=== PATIENT | male | born 1950 | race African-American/Black ===

== ENCOUNTER 2017-05-21 19:28 | Inpatient (IN) | payer MEDICARE, MEDICAID ==
[~2017-05-21] VITALS: Ht 175.3 cm; Wt 102.8 kg
[~2017-05-21 19:28] MED LIST: ASPI-1160
[2017-05-21 20:07] LABS: BASOPHILS % 0.5 % (0.0-2.0); EOSINOPHILS % 0.9 % (0.0-5.0); HEMATOCRIT. 41.3 % (42.0-52.0); HEMOGLOBIN. 13.4 g/dL (14.0-18.0); LYMPHOCYTES % 18.2 % (20.0-50.0); MEAN CORPUSCULAR HEMOGLOBIN 28.9 pg (28.0-32.0); MEAN CORPUSCULAR VOLUME 89.4 fL (80.0-94.0); MEAN PLATELET VOLUME 8.1 fl (7.4-10.4); MONOCYTES % 9.3 % (2.0-8.0); NEUTROPHILS % 71.1 % (40.0-76.0); PLATELET 222 x1000/uL (130-400); RED BLOOD CELL COUNT 4.62 mill/uL (4.7-6.1); RED CELL DISTRIBUTION WIDTH 15.6 % (11.6-14.6)
[2017-05-21 20:10] LABS: INR 1.1; PROTHROMBIN TIME 11.1 sec (9.4-11.6)
[2017-05-21 20:15] LABS: CHLORIDE 99 mEq/L (98-107)
[2017-05-21 20:21] LABS: TROPONIN I 0.03 ng/mL (0.00-0.04)
[2017-05-21 21:57] LABS: CLARITY URINE CLEAR (CLEAR); COLOR URINE YELLOW (YELLOW); KETONES URINE NEGATIVE (NEGATIVE); LEUKOCYTE ESTERASE URINE 1+ (NEGATIVE); NITRITE URINE NEGATIVE (NEGATIVE); OCCULT BLOOD URINE NEGATIVE (NEGATIVE); PROTEIN URINE TRACE (NEGATIVE); SPECIFIC GRAVITY URINE 1.017 (1.005-1.030); UROBILINOGEN URINE 0.2 E.U./dL (0.2-1.0)
[2017-05-21] MEDS ORDERED: ASPIRIN 81MG TABLET PO ONE (23:30)
[2017-05-21] MEDS ORDERED: PROMETHAZINE HCL 25MG TABLET PO PRN (23:30)
[2017-05-21] MEDS ORDERED: GUAIFENESIN 200MG/10ML SUGAR FREE UDC PO PRN (23:30)
[2017-05-21] MEDS ORDERED: ACETAMINOPHEN 650MG/20.3ML UDC GT PRN (23:30)
[2017-05-21] MEDS ORDERED: DIPHENHYDRAMINE 50MG/ML VIAL IV PRN (23:30)
[2017-05-21] MEDS ORDERED: IPRATROPIUM/ALBUTEROL 0.5-3(2.5)MG/3ML NEB INH PRN (23:30)
[2017-05-21] MEDS ORDERED: ONDANSETRON HCL 4MG/2ML VIAL IV PRN (23:30)
[2017-05-21] MEDS ORDERED: MAGNESIUM/ALUMINUM HYDROXIDE/SIMETHICONE 30ML UDC PO PRN (23:30)
[2017-05-21] MEDS ORDERED: NA PHOS,M-B/NA PHOS,DI-BA ENEMA 118ML PR PRN (23:30)
[2017-05-21] MEDS ORDERED: DOCUSATE SODIUM 100MG CAPSULE PO PRN (23:30)
[2017-05-21] MEDS ORDERED: ALBUTEROL (0.5%) 2.5MG/0.5ML NEB HHN ONE (23:30)
[2017-05-21] MEDS ORDERED: ACETAMINOPHEN 650MG SUPP PR PRN (23:30)
[2017-05-21] MEDS ORDERED: FUROSEMIDE 20MG TABLET PO ONE (23:30)
[2017-05-22] MEDS ORDERED: KETOROLAC 30MG/ML VIAL IV ONE
[2017-05-22] MEDS ORDERED: CEFTRIAXONE 1 G PREMIX 50 ML IV ONE
[2017-05-22 05:45] VITALS: BP 159/89
[2017-05-22] MEDS ORDERED: ROCEPHINE XX SCH (06:00)
[2017-05-22] MEDS: SODIUM CHLORIDE 0.9% INJ 3ML FLUSH IVF SCH ×3 (06:06→21:40)
[2017-05-22 06:35] VITALS: BP 159/89
[2017-05-22 07:53] LABS: CLARITY URINE CLEAR (CLEAR); COLOR URINE YELLOW (YELLOW); KETONES URINE NEGATIVE (NEGATIVE); LEUKOCYTE ESTERASE URINE TRACE (NEGATIVE); NITRITE URINE NEGATIVE (NEGATIVE); OCCULT BLOOD URINE NEGATIVE (NEGATIVE); PROTEIN URINE NEGATIVE (NEGATIVE); SPECIFIC GRAVITY URINE 1.021 (1.005-1.030); UROBILINOGEN URINE 0.2 E.U./dL (0.2-1.0)
[2017-05-22 08:00] VITALS: BP 123/64
[2017-05-22 08:23] LABS: *AMPHETAMINES SCREEN URINE NEGATIVE (NEGATIVE); *BARBITURATES SCREEN URINE NEGATIVE (NEGATIVE); *BENZODIAZEPINES SCREEN URINE NEGATIVE (NEGATIVE); *COCAINE SCREEN URINE NEGATIVE (NEGATIVE); CANNABINOID URINE SCREEN NEGATIVE (NEGATIVE); METHADONE URINE SCREEN NEGATIVE (NEGATIVE); OPIATES URINE SCREEN NEGATIVE (NEGATIVE); PHENCYCLIDINE URINE SCREEN NEGATIVE (NEGATIVE)
[2017-05-22] MEDS: IPRATROPIUM/ALBUTEROL 0.5-3(2.5)MG/3ML NEB INH SCH ×3 (08:47→21:09)
[2017-05-22 09:59] LABS: BASOPHILS % 0.4 % (0.0-2.0); EOSINOPHILS % 0.7 % (0.0-5.0); HEMATOCRIT. 37.5 % (42.0-52.0); HEMOGLOBIN. 12.2 g/dL (14.0-18.0); LYMPHOCYTES % 15.4 % (20.0-50.0); MEAN CORPUSCULAR HEMOGLOBIN 28.9 pg (28.0-32.0); MEAN CORPUSCULAR VOLUME 88.8 fL (80.0-94.0); MEAN PLATELET VOLUME 8.2 fl (7.4-10.4); NEUTROPHILS % 76.5 % (40.0-76.0); PLATELET 190 x1000/uL (130-400); RED BLOOD CELL COUNT 4.23 mill/uL (4.7-6.1); RED CELL DISTRIBUTION WIDTH 15.8 % (11.6-14.6)
[2017-05-22 10:19] LABS: CHLORIDE 103 mEq/L (98-107)
[2017-05-22 10:23] LABS: HDL CHOLESTEROL 82 mg/dL (40-59); LDL CHOLESTEROL 45 mg/dL (5-100)
[2017-05-22 10:30] LABS: TROPONIN I 0.13 ng/mL (0.00-0.04)
[2017-05-22 12:00] VITALS: BP 114/57
[2017-05-22] MEDS: FAMOTIDINE 20MG/2ML VIAL IV SCH (13:20)
[2017-05-22] MEDS: ENOXAPARIN 40MG/0.4ML SYR SUBCUT SCH (13:20)
[2017-05-22 16:00] VITALS: BP 109/56
[2017-05-22] MEDS ORDERED: POTASSIUM CHLORIDE 20MEQ TABLET SR PO NR (17:00)
[2017-05-22 17:03] LABS: TROPONIN I 0.09 ng/mL (0.00-0.04)
[2017-05-22 20:00] VITALS: BP 135/70
[2017-05-22 22:50] LABS: CLARITY URINE CLOUDY (CLEAR); COLOR URINE YELLOW (YELLOW); KETONES URINE NEGATIVE (NEGATIVE); LEUKOCYTE ESTERASE URINE NEGATIVE (NEGATIVE); NITRITE URINE NEGATIVE (NEGATIVE); OCCULT BLOOD URINE NEGATIVE (NEGATIVE); PH URINE 5.5 (4.5-8.0); PROTEIN URINE 1+ (NEGATIVE); SPECIFIC GRAVITY URINE 1.024 (1.005-1.030); UROBILINOGEN URINE 0.2 E.U./dL (0.2-1.0)
[2017-05-23] VITALS: BP 130/64
[2017-05-23] MEDS: ACETAMINOPHEN 325MG TABLET PO PRN ×2 (02:00→20:53)
[2017-05-23] MEDS: IPRATROPIUM/ALBUTEROL 0.5-3(2.5)MG/3ML NEB INH SCH ×4 (02:38→20:23)
[2017-05-23 04:00] VITALS: BP 114/54
[2017-05-23] MEDS: SODIUM CHLORIDE 0.9% INJ 3ML FLUSH IVF SCH ×3 (05:34→22:00)
[2017-05-23 08:00] VITALS: BP 133/71
[2017-05-23] MEDS: HYDROCODONE/ACETAMINOPHEN 5/325MG TABLET PO PRN (10:25)
[2017-05-23] MEDS: FAMOTIDINE 20MG/2ML VIAL IV SCH (10:28)
[2017-05-23] MEDS: ENOXAPARIN 40MG/0.4ML SYR SUBCUT SCH (10:43)
[2017-05-23] MEDS: PANTOPRAZOLE SODIUM 40 MG/VIAL IV SCH (11:59)
[2017-05-23 12:00] VITALS: BP 142/84
[2017-05-23 16:00] VITALS: BP 105/54
[2017-05-23 20:00] VITALS: BP 139/84
[2017-05-23] MEDS: FAMOTIDINE 20MG TABLET PO SCH (20:53)
[2017-05-23] MEDS ORDERED: CEFTRIAXONE 1 G PREMIX 50 ML IV SCH ×2 (21:00)
[2017-05-24] VITALS: BP 131/74
[2017-05-24] MEDS: IPRATROPIUM/ALBUTEROL 0.5-3(2.5)MG/3ML NEB INH SCH ×3 (01:00→13:42)
[2017-05-24] MEDS: HYDROCODONE/ACETAMINOPHEN 5/325MG TABLET PO PRN (03:52)
[2017-05-24 04:00] VITALS: BP 138/79
[2017-05-24] MEDS: SODIUM CHLORIDE 0.9% INJ 3ML FLUSH IVF SCH ×2 (05:43→13:52)
[2017-05-24 08:00] VITALS: BP 146/84
[2017-05-24] MEDS: FAMOTIDINE 20MG TABLET PO SCH (09:09)
[2017-05-24] MEDS: CALCIUM CARBONATE 500MG TABLET CHEW PO SCH ×2 (09:09→13:51)
[2017-05-24] MEDS: PANTOPRAZOLE SODIUM 40 MG/VIAL IV SCH (09:10)
[2017-05-24] MEDS: ENOXAPARIN 40MG/0.4ML SYR SUBCUT SCH (09:10)
[2017-05-24 12:00] VITALS: BP 164/96
[2017-05-24] MEDS: ACETAMINOPHEN 325MG TABLET PO PRN (13:51)
[2017-05-24 15:51] VITALS: BP 140/74
[2017-05-24 16:00] VITALS: BP 140/74
== END 2017-05-24 16:32 | disposition home or self-care (01) | DRG 133 ==
LOC: ER 19:28 → 5WST 23:24 → EDBEDREQ 23:37 → ENRESERV 05-22 04:42
PROVIDERS: ADMIT Family Medicine; ATTEND Family Medicine
DX: J96.20 Acute and chronic respiratory failure, unspecified whether with hypoxia or hypercapnia (principal); I50.43 Acute on chronic combined systolic (congestive) and diastolic (congestive) heart failure; N17.9 Acute kidney failure, unspecified; K80.20 Calculus of gallbladder without cholecystitis without obstruction; N18.9 Chronic kidney disease, unspecified; N39.0 Urinary tract infection, site not specified; K59.00 Constipation, unspecified; J44.9 Chronic obstructive pulmonary disease, unspecified; I44.0 Atrioventricular block, first degree; E44.1 Mild protein-calorie malnutrition; I13.0 Hypertensive heart and chronic kidney disease with heart failure and stage 1 through stage 4 chronic kidney disease, or unspecified chronic kidney disease; I25.10 Atherosclerotic heart disease of native coronary artery without angina pectoris; K57.30 Diverticulosis of large intestine without perforation or abscess without bleeding; J98.11 Atelectasis; K52.9 Noninfective gastroenteritis and colitis, unspecified; J44.1 Chronic obstructive pulmonary disease with (acute) exacerbation; Z83.3 Family history of diabetes mellitus; I69.354 Hemiplegia and hemiparesis following cerebral infarction affecting left non-dominant side; I25.2 Old myocardial infarction; Z90.5 Acquired absence of kidney; Z99.81 Dependence on supplemental oxygen; Z68.33 Body mass index [BMI] 33.0-33.9, adult
CPT/HCPCS: 36415; 71045; 74176; 76700; 76770; 80053; 80061; 80305; 81003; 82550; 83690; 83880; 84484; 85025; 85610; 87086; 93005; 94640; 96365; 96375; 99291; C9113; J0696; J1650; J1885; J3490; J7050; J7611; J7620

== ENCOUNTER 2021-10-05 11:38 | Inpatient (IN) | payer MEDICARE, MEDICAID ==
[~2021-10-05] VITALS: Ht 167.6 cm; Wt 82.6 kg
[2021-10-05] MEDS ORDERED: SODIUM CHLORIDE 0.9% 1,000 ML IV ONE (12:00)
[2021-10-05 12:52] LABS: CHLORIDE 95 mEq/L (98-107)
[2021-10-05 14:25] LABS: BASOPHILS % 0.8 % (0.0-2.0); EOSINOPHILS % 2.4 % (0.0-5.0); HEMATOCRIT. 40.8 % (42.0-52.0); HEMOGLOBIN. 12.9 g/dL (14.0-18.0); LYMPHOCYTES % 9.2 % (20.0-50.0); MEAN CORPUSCULAR HEMOGLOBIN 28.9 pg (28.0-32.0); MEAN CORPUSCULAR VOLUME 91.4 fL (80.0-94.0); MEAN PLATELET VOLUME 9.8 fl (7.4-10.4); MONOCYTES % 9.4 % (2.0-8.0); NEUTROPHILS % 78.2 % (40.0-76.0); PLATELET 135 x1000/uL (130-400); RED BLOOD CELL COUNT 4.46 mill/uL (4.7-6.1); RED CELL DISTRIBUTION WIDTH 16.9 % (11.6-14.6)
[2021-10-05] MEDS ORDERED: ASPIRIN 325MG EC TABLET PO NR (15:30)
[2021-10-05] MEDS ORDERED: GUAIFENESIN 200MG/10ML SUGAR FREE UDC PO PRN (18:00)
[2021-10-05] MEDS ORDERED: ONDANSETRON HCL 4MG/2ML INJ IV PRN (18:00)
[2021-10-05] MEDS ORDERED: CLONIDINE 0.1MG TABLET PO PRN (18:00)
[2021-10-05] MEDS ORDERED: IPRATROPIUM/ALBUTEROL 0.5-3(2.5)MG/3ML NEB NEB PRN (18:00)
[2021-10-05 21:00] VITALS: BP 125/68
[2021-10-05 21:30] VITALS: BP 125/68
[2021-10-05] MEDS: ENOXAPARIN 30MG/0.3ML SYR SUBCUT SCH (21:42)
[2021-10-05 23:43] LABS: CLARITY URINE CLEAR (CLEAR); COLOR URINE YELLOW (YELLOW); KETONES URINE TRACE (NEGATIVE); LEUKOCYTE ESTERASE URINE NEGATIVE (NEGATIVE); NITRITE URINE NEGATIVE (NEGATIVE); OCCULT BLOOD URINE 1+ (NEGATIVE); PH URINE 6.5 (4.5-8.0); PROTEIN URINE 1+ (NEGATIVE); SPECIFIC GRAVITY URINE 1.013 (1.005-1.030)
[2021-10-06] VITALS: BP 104/61
[2021-10-06 00:09] LABS: SODIUM URINE RANDOM 74 mEq/L
[2021-10-06 00:17] LABS: *AMPHETAMINES SCREEN URINE NEGATIVE (NEGATIVE); *BARBITURATES SCREEN URINE NEGATIVE (NEGATIVE); *BENZODIAZEPINES SCREEN URINE NEGATIVE (NEGATIVE); *COCAINE SCREEN URINE NEGATIVE (NEGATIVE); CANNABINOID URINE SCREEN NEGATIVE (NEGATIVE); METHADONE URINE SCREEN NEGATIVE (NEGATIVE); OPIATES URINE SCREEN NEGATIVE (NEGATIVE); PHENCYCLIDINE URINE SCREEN NEGATIVE (NEGATIVE); UREA NITROGEN URINE RANDOM 441 mg/dL
[2021-10-06] MEDS: ACETAMINOPHEN 325MG TABLET PO PRN ×2 (03:37→12:36)
[2021-10-06 04:00] VITALS: BP 109/60
[2021-10-06] MEDS: HYDROCODONE/ACETAMINOPHEN 5/325MG TABLET PO PRN (06:45)
[2021-10-06 08:00] VITALS: BP 111/64
[2021-10-06 08:22] LABS: BASOPHILS % 0.7 % (0.0-2.0); EOSINOPHILS % 3.4 % (0.0-5.0); HEMATOCRIT. 37.6 % (42.0-52.0); HEMOGLOBIN. 12.2 g/dL (14.0-18.0); MEAN CORPUSCULAR HEMOGLOBIN 28.9 pg (28.0-32.0); MEAN CORPUSCULAR VOLUME 89.2 fL (80.0-94.0); MEAN PLATELET VOLUME 9.1 fl (7.4-10.4); MONOCYTES % 7.1 % (2.0-8.0); NEUTROPHILS % 79.8 % (40.0-76.0); PLATELET 142 x1000/uL (130-400); RED BLOOD CELL COUNT 4.22 mill/uL (4.7-6.1); RED CELL DISTRIBUTION WIDTH 15.9 % (11.6-14.6)
[2021-10-06] MEDS: ASPIRIN 81MG EC TABLET PO SCH (08:30)
[2021-10-06 08:51] LABS: PHOSPHORUS 5.1 mg/dL (2.5-4.9)
[2021-10-06] MEDS ORDERED: IPRATROPIUM/ALBUTEROL 0.5-3(2.5)MG/3ML NEB HHN NR (09:20)
[2021-10-06] MEDS ORDERED: NITROGLYCERIN 0.4MG TABLET SL SL PRN (09:30)
[2021-10-06] MEDS ORDERED: IPRATROPIUM/ALBUTEROL 0.5-3(2.5)MG/3ML NEB HHN PRN (10:15)
[2021-10-06] MEDS ORDERED: METHYLPREDNISOLONE SOD SUCC 125 MG/2 ML VIAL IV SCH (10:30)
[2021-10-06 10:33] LABS: VITAMIN B12 SERUM 1101 pg/mL (211-911)
[2021-10-06 11:05] LABS: FOLIC ACID (FOLATE) SERUM > 20.00 ng/mL (>5.38)
[2021-10-06 11:27] LABS: FERRITIN 873 ng/mL (22-322)
[2021-10-06 11:32] LABS: BG BASE EXCESS 8.5 mmol/L (-2.0-2.0); BG CARBOXYHEMOGLOBIN 1.4 % (0.5-1.5); BG FRACTION INSPIRED OXYGEN 32; BG METHEMOGLOBIN 0.3 % (0.0-1.5); BG OXYHEMOGLOBIN 96.3 % (94.0-97.0); BG PCO2 72.2 mmHg (35.0-45.0); BG PH 7.328 (7.350-7.450); BG SAMPLE SITE RIGHT RADIAL; BG TOTAL HEMOGLOBIN 12.7 g/dL (12.0-18.0); BG VENT MODE NASAL CANNULA
[2021-10-06 11:35] VITALS: BP 101/51
[2021-10-06] MEDS: CLOPIDOGREL 75MG TABLET PO SCH (12:05)
[2021-10-06] MEDS ORDERED: POTASSIUM CHLORIDE INJ 40 MEQ in DEXT 5% WATER 250 ML IV NR (12:30)
[2021-10-06] MEDS: IPRATROPIUM/ALBUTEROL 0.5-3(2.5)MG/3ML NEB HHN SCH ×4 (13:40→20:31)
[2021-10-06] MEDS ORDERED: REGADENOSON 0.4 MG/5 ML IV NR (14:15)
[2021-10-06 15:41] VITALS: BP 100/49
[2021-10-06 15:53] LABS: BG BASE EXCESS 7.9 mmol/L (-2.0-2.0); BG CARBOXYHEMOGLOBIN 0.6 % (0.5-1.5); BG DEOXYHEMOGLOBIN 2.1 % (0.0-5.0); BG FRACTION INSPIRED OXYGEN 28; BG HCO3 ACT 36.9 mmol/L (22.0-26.0); BG METHEMOGLOBIN 0.1 % (0.0-1.5); BG OXYGEN SATURATION 97.9 % (92.0-98.5); BG OXYHEMOGLOBIN 97.2 % (94.0-97.0); BG PCO2 74.6 mmHg (35.0-45.0); BG PH 7.312 (7.350-7.450); BG PO2 117.5 mmHg (75.0-100.0); BG SAMPLE SITE RIGHT RADIAL; BG TOTAL HEMOGLOBIN 13.5 g/dL (12.0-18.0); BG VENT MODE NASAL CANNULA
[2021-10-06 16:38] LABS: HEPATITIS B SURFACE AB 68.1 mIU/mL
[2021-10-06 16:49] LABS: HEPATITIS B SURFACE ANTIGEN NEGATIVE
[2021-10-06 20:00] VITALS: BP 100/56
[2021-10-06] MEDS: ENOXAPARIN 30MG/0.3ML SYR SUBCUT SCH (20:46)
[2021-10-06 21:05] LABS: BG BASE EXCESS 6.6 mmol/L (-2.0-2.0); BG CARBOXYHEMOGLOBIN 0.7 % (0.5-1.5); BG DEOXYHEMOGLOBIN 4.8 % (0.0-5.0); BG FRACTION INSPIRED OXYGEN 24; BG METHEMOGLOBIN 0.2 % (0.0-1.5); BG OXYGEN SATURATION 95.2 % (92.0-98.5); BG OXYHEMOGLOBIN 94.3 % (94.0-97.0); BG PCO2 69.4 mmHg (35.0-45.0); BG PH 7.321 (7.350-7.450); BG SAMPLE SITE RIGHT RADIAL; BG TOTAL HEMOGLOBIN 13.3 g/dL (12.0-18.0); BG VENT MODE NASAL CANNULA
[2021-10-07] VITALS: BP 99/55
[2021-10-07 04:04] VITALS: BP 101/53
[2021-10-07] MEDS: HYDROCODONE/ACETAMINOPHEN 5/325MG TABLET PO PRN ×2 (05:57→21:12)
[2021-10-07] MEDS: MAGNESIUM/ALUMINUM HYDROXIDE/SIMETHICONE 30ML UDC PO PRN (06:57)
[2021-10-07 07:47] LABS: HEMATOCRIT. 38.7 % (42.0-52.0); HEMOGLOBIN. 12.4 g/dL (14.0-18.0); MEAN CORPUSCULAR HEMOGLOBIN 28.8 pg (28.0-32.0); MEAN CORPUSCULAR VOLUME 89.7 fL (80.0-94.0); MEAN PLATELET VOLUME 9.2 fl (7.4-10.4); PLATELET 163 x1000/uL (130-400); RED BLOOD CELL COUNT 4.31 mill/uL (4.7-6.1)
[2021-10-07 08:00] VITALS: BP 102/55
[2021-10-07 08:15] LABS: PHOSPHORUS 3.9 mg/dL (2.5-4.9)
[2021-10-07] MEDS: CLOPIDOGREL 75MG TABLET PO SCH (08:43)
[2021-10-07] MEDS: ASPIRIN 81MG EC TABLET PO SCH (08:44)
[2021-10-07 09:07] LABS: *CREATININE RANDOM URINE 70.9 mg/dL (Not Estab.)
[2021-10-07 12:00] VITALS: BP 115/59
[2021-10-07] MEDS ORDERED: DEXAMETHASONE 4MG TABLET PO SCH (15:00)
[2021-10-07 16:00] VITALS: BP 109/51
[2021-10-07] MEDS ORDERED: ERGOCALCIFEROL 50000UNITS CAPSULE PO SCH (17:00)
[2021-10-07] MEDS: DEXAMETHASONE 10 MG/ML VIAL IV SCH (17:01)
[2021-10-07] MEDS: AZITHROMYCIN 500 MG TABLET PO SCH (17:01)
[2021-10-07] MEDS: ALBUTEROL 6.7GM HFA INHALER ORI SCH (18:12)
[2021-10-07 20:00] VITALS: BP 106/50
[2021-10-07] MEDS: ENOXAPARIN 30MG/0.3ML SYR SUBCUT SCH (21:12)
[2021-10-07] MEDS: ASCORBIC ACID 500 MG TABLET PO SCH (21:13)
[2021-10-08] VITALS (7 sets, daily range): BP systolic 96–128; BP diastolic 53–77
[2021-10-08] MEDS: ALBUTEROL 6.7GM HFA INHALER ORI SCH ×4 (01:01→16:59)
[2021-10-08] MEDS: HYDROCODONE/ACETAMINOPHEN 5/325MG TABLET PO PRN ×2 (04:54→16:59)
[2021-10-08] MEDS: ASPIRIN 81MG EC TABLET PO SCH (09:18)
[2021-10-08] MEDS: ASCORBIC ACID 500 MG TABLET PO SCH ×2 (09:18→21:36)
[2021-10-08] MEDS: AZITHROMYCIN 500 MG TABLET PO SCH (09:18)
[2021-10-08] MEDS: CLOPIDOGREL 75MG TABLET PO SCH (09:18)
[2021-10-08 16:21] LABS: HEMATOCRIT. 39.1 % (42.0-52.0); HEMOGLOBIN. 12.2 g/dL (14.0-18.0); MEAN PLATELET VOLUME 8.7 fl (7.4-10.4); PLATELET 180 x1000/uL (130-400); RED CELL DISTRIBUTION WIDTH 16.4 % (11.6-14.6)
[2021-10-08 16:48] LABS: CHLORIDE 102 mEq/L (98-107)
[2021-10-08 16:50] LABS: PLATELET ESTIMATE NORMAL
[2021-10-08] MEDS ORDERED: AZIT500T8 MT (16:59)
[2021-10-08] MEDS ORDERED: [UNRECOGNIZED DRUG - CODE] PO ×3 (16:59→17:06)
[2021-10-08] MEDS ORDERED: MED4 MT ×3 (16:59→17:06)
[2021-10-08] MEDS: DEXAMETHASONE 10 MG/ML VIAL IV SCH (16:59)
[2021-10-08] MEDS ORDERED: AZIT500T8 PO ×2 (17:06)
[2021-10-08 17:07] LABS: PHOSPHORUS 2.5 mg/dL (2.5-4.9)
[2021-10-08] MEDS ORDERED: NALOXONE HCL 0.4MG/ML VIAL IV PRN (18:45)
[2021-10-08] MEDS: ENOXAPARIN 30MG/0.3ML SYR SUBCUT SCH (21:36)
[2021-10-08 22:38] LABS: PLATELET ESTIMATE NORMAL
[2021-10-08 23:10] LABS: BG BASE EXCESS 9.1 mmol/L (-2.0-2.0); BG DEOXYHEMOGLOBIN 3.8 % (0.0-5.0); BG FRACTION INSPIRED OXYGEN 36; BG METHEMOGLOBIN 0.3 % (0.0-1.5); BG OXYGEN SATURATION 96.1 % (92.0-98.5); BG OXYHEMOGLOBIN 94.9 % (94.0-97.0); BG PCO2 126.1 mmHg (35.0-45.0); BG PH 7.151 (7.350-7.450); BG PO2 102.9 mmHg (75.0-100.0); BG SAMPLE SITE RIGHT RADIAL; BG VENT MODE NASAL CANNULA
[2021-10-09] VITALS (50 sets, daily range): BP systolic 91–140; BP diastolic 51–81
[2021-10-09 01:58] LABS: BG BASE EXCESS 6.7 mmol/L (-2.0-2.0); BG CARBOXYHEMOGLOBIN 1.1 % (0.5-1.5); BG DEOXYHEMOGLOBIN 2.3 % (0.0-5.0); BG FRACTION INSPIRED OXYGEN 50; BG HCO3 ACT 37.3 mmol/L (22.0-26.0); BG METHEMOGLOBIN 0.4 % (0.0-1.5); BG OXYGEN SATURATION 97.7 % (92.0-98.5); BG OXYHEMOGLOBIN 96.2 % (94.0-97.0); BG PCO2 87.2 mmHg (35.0-45.0); BG PH 7.249 (7.350-7.450); BG PO2 111.8 mmHg (75.0-100.0); BG SAMPLE SITE RIGHT RADIAL; BG TOTAL HEMOGLOBIN 13.9 g/dL (12.0-18.0); BG VENT MODE MASK - BIPAP
[2021-10-09] MEDS: ALBUTEROL 6.7GM HFA INHALER ORI SCH ×3 (05:33→18:43)
[2021-10-09 06:44] LABS: PHOSPHORUS 4.3 mg/dL (2.5-4.9)
[2021-10-09 08:43] LABS: BG BASE EXCESS 11.3 mmol/L (-2.0-2.0); BG CARBOXYHEMOGLOBIN 0.5 % (0.5-1.5); BG DEOXYHEMOGLOBIN 1.1 % (0.0-5.0); BG FRACTION INSPIRED OXYGEN 50; BG HCO3 ACT 40.7 mmol/L (22.0-26.0); BG METHEMOGLOBIN 0.1 % (0.0-1.5); BG OXYGEN SATURATION 98.9 % (92.0-98.5); BG OXYHEMOGLOBIN 98.3 % (94.0-97.0); BG PCO2 78.7 mmHg (35.0-45.0); BG PH 7.331 (7.350-7.450); BG PO2 158.3 mmHg (75.0-100.0); BG SAMPLE SITE RIGHT RADIAL; BG TOTAL HEMOGLOBIN 13.5 g/dL (12.0-18.0); BG TOTAL RESPIRATORY RATE 24 b/min; BG VENT MODE MASK - BIPAP
[2021-10-09] MEDS: ASCORBIC ACID 500 MG TABLET PO SCH ×2 (09:03→21:19)
[2021-10-09] MEDS: CLOPIDOGREL 75MG TABLET PO SCH (09:03)
[2021-10-09] MEDS: ASPIRIN 81MG EC TABLET PO SCH (09:04)
[2021-10-09] MEDS: DEXAMETHASONE 10 MG/ML VIAL IV SCH ×2 (09:49→17:44)
[2021-10-09 09:59] LABS: HEMATOCRIT. 39.4 % (42.0-52.0); HEMOGLOBIN. 12.4 g/dL (14.0-18.0); MEAN CORPUSCULAR HEMOGLOBIN 28.9 pg (28.0-32.0); MEAN CORPUSCULAR VOLUME 91.8 fL (80.0-94.0); MEAN PLATELET VOLUME 9.1 fl (7.4-10.4); PLATELET 191 x1000/uL (130-400); RED BLOOD CELL COUNT 4.29 mill/uL (4.7-6.1); RED CELL DISTRIBUTION WIDTH 16.3 % (11.6-14.6)
[2021-10-09 10:46] LABS: PLATELET ESTIMATE NORMAL
[2021-10-09 15:23] LABS: BG BASE EXCESS 10.6 mmol/L (-2.0-2.0); BG CARBOXYHEMOGLOBIN 0.6 % (0.5-1.5); BG DEOXYHEMOGLOBIN 2.9 % (0.0-5.0); BG FRACTION INSPIRED OXYGEN 40; BG HCO3 ACT 37.5 mmol/L (22.0-26.0); BG METHEMOGLOBIN 0.3 % (0.0-1.5); BG OXYGEN SATURATION 97.1 % (92.0-98.5); BG OXYHEMOGLOBIN 96.2 % (94.0-97.0); BG PCO2 60.4 mmHg (35.0-45.0); BG PH 7.411 (7.350-7.450); BG PO2 92.3 mmHg (75.0-100.0); BG SAMPLE SITE RIGHT RADIAL; BG TOTAL RESPIRATORY RATE 24 b/min; BG VENT MODE MASK - BIPAP
[2021-10-09] MEDS: ENOXAPARIN 30MG/0.3ML SYR SUBCUT SCH (21:19)
[2021-10-10] VITALS (40 sets, daily range): BP systolic 100–154; BP diastolic 65–91
[2021-10-10] MEDS: ALBUTEROL 6.7GM HFA INHALER ORI SCH ×4 (00:39→18:09)
[2021-10-10 05:37] LABS: HEMATOCRIT. 38.4 % (42.0-52.0); HEMOGLOBIN. 12.2 g/dL (14.0-18.0); MEAN CORPUSCULAR HEMOGLOBIN 28.7 pg (28.0-32.0); MEAN CORPUSCULAR VOLUME 90.3 fL (80.0-94.0); MEAN PLATELET VOLUME 9.3 fl (7.4-10.4); PLATELET 206 x1000/uL (130-400); RED BLOOD CELL COUNT 4.25 mill/uL (4.7-6.1)
[2021-10-10 06:17] LABS: CHLORIDE 102 mEq/L (98-107); PHOSPHORUS 1.9 mg/dL (2.5-4.9)
[2021-10-10] MEDS: ASCORBIC ACID 500 MG TABLET PO SCH ×2 (08:20→20:40)
[2021-10-10] MEDS: ASPIRIN 81MG EC TABLET PO SCH (08:20)
[2021-10-10] MEDS: DEXAMETHASONE 10 MG/ML VIAL IV SCH ×2 (08:20→16:56)
[2021-10-10] MEDS: CLOPIDOGREL 75MG TABLET PO SCH (08:20)
[2021-10-10] MEDS: DOXYCYCLINE 100 MG in DEXT 5% WATER 100 ML IV SCH ×2 (09:04→20:31)
[2021-10-10 10:31] LABS: BG BASE EXCESS 12.8 mmol/L (-2.0-2.0); BG CARBOXYHEMOGLOBIN 0.3 % (0.5-1.5); BG DEOXYHEMOGLOBIN 2.6 % (0.0-5.0); BG FRACTION INSPIRED OXYGEN 40; BG HCO3 ACT 38.7 mmol/L (22.0-26.0); BG METHEMOGLOBIN 0.3 % (0.0-1.5); BG OXYGEN SATURATION 97.4 % (92.0-98.5); BG OXYHEMOGLOBIN 96.8 % (94.0-97.0); BG PCO2 55.8 mmHg (35.0-45.0); BG PH 7.459 (7.350-7.450); BG SAMPLE SITE RIGHT RADIAL; BG TOTAL HEMOGLOBIN 11.9 g/dL (12.0-18.0); BG TOTAL RESPIRATORY RATE 24 b/min; BG VENT MODE MASK - BIPAP
[2021-10-10] MEDS ORDERED: POTASSIUM PHOS,M-BASIC-D-BASIC 15 MMOL in DEXT 5% WATER 245 ML IV NR (12:30)
[2021-10-10 14:41] LABS: PLATELET ESTIMATE NORMAL
[2021-10-10] MEDS ORDERED: HYDROCODONE/ACETAMINOPHEN 5/325MG TABLET PO PRN (20:15)
[2021-10-10] MEDS: MAGNESIUM/ALUMINUM HYDROXIDE/SIMETHICONE 30ML UDC PO PRN (20:38)
[2021-10-10] MEDS: ENOXAPARIN 30MG/0.3ML SYR SUBCUT SCH (20:41)
[2021-10-10] MEDS ORDERED: HYDROXYZINE 25MG TABLET PO PRN (22:30)
[2021-10-11] VITALS (56 sets, daily range): BP systolic 44–147; BP diastolic 23–120
[2021-10-11] MEDS: ALBUTEROL 6.7GM HFA INHALER ORI SCH ×2 (04:29→06:19)
[2021-10-11 07:24] LABS: HEMATOCRIT. 33.7 % (42.0-52.0); MEAN CORPUSCULAR HEMOGLOBIN 28.9 pg (28.0-32.0); MEAN CORPUSCULAR VOLUME 88.5 fL (80.0-94.0); PLATELET 195 x1000/uL (130-400); RED BLOOD CELL COUNT 3.81 mill/uL (4.7-6.1); RED CELL DISTRIBUTION WIDTH 16.4 % (11.6-14.6)
[2021-10-11 07:58] LABS: PHOSPHORUS 3.9 mg/dL (2.5-4.9)
[2021-10-11 08:17] LABS: BG BASE EXCESS 9.1 mmol/L (-2.0-2.0); BG CARBOXYHEMOGLOBIN 0.7 % (0.5-1.5); BG DEOXYHEMOGLOBIN 3.2 % (0.0-5.0); BG HCO3 ACT 36.2 mmol/L (22.0-26.0); BG METHEMOGLOBIN 0.2 % (0.0-1.5); BG OXYGEN SATURATION 96.8 % (92.0-98.5); BG OXYHEMOGLOBIN 95.9 % (94.0-97.0); BG PCO2 62.5 mmHg (35.0-45.0); BG PH 7.381 (7.350-7.450); BG PO2 91.5 mmHg (75.0-100.0); BG SAMPLE SITE RIGHT RADIAL; BG TOTAL HEMOGLOBIN 11.9 g/dL (12.0-18.0); BG VENT MODE MASK - BIPAP
[2021-10-11] MEDS ORDERED: SODIUM BICARBONATE 8.4% 1 MEQ/ML 50ML SYR IV ONE (08:29)
[2021-10-11] MEDS ORDERED: EPINEPHRINE 0.1MG/ML (1:10,000) 10ML SYR ONE (08:29)
[2021-10-11] MEDS ORDERED: LIDOCAINE HCL/PF 1% 2ML VIAL ONE (09:40)
[2021-10-11] MEDS ORDERED: PROPOFOL 10MG/ML 100ML 100 ML IV PRN (10:30)
[2021-10-11] MEDS: ASCORBIC ACID 500 MG TABLET PO SCH ×2 (10:31→20:25)
[2021-10-11] MEDS: CLOPIDOGREL 75MG TABLET PO SCH (10:31)
[2021-10-11] MEDS: ASPIRIN 81MG EC TABLET PO SCH (10:31)
[2021-10-11 10:41] LABS: BG BASE EXCESS 7.8 mmol/L (-2.0-2.0); BG CARBOXYHEMOGLOBIN 0.3 % (0.5-1.5); BG DEOXYHEMOGLOBIN 0.6 % (0.0-5.0); BG FRACTION INSPIRED OXYGEN 100; BG METHEMOGLOBIN 0.2 % (0.0-1.5); BG OXYGEN SATURATION 99.4 % (92.0-98.5); BG OXYHEMOGLOBIN 98.9 % (94.0-97.0); BG PH 7.446 (7.350-7.450); BG PO2 335.5 mmHg (75.0-100.0); BG SAMPLE SITE RIGHT BRACHIAL; BG TOTAL HEMOGLOBIN 11.1 g/dL (12.0-18.0); BG VENT MODE VENT - CPAP
[2021-10-11] MEDS ORDERED: PHENYLEPHRINE 100 MG in DEXT 5% WATER 240 ML IV PRN (11:00)
[2021-10-11] MEDS: NOREPINEPHRINE 32 MG in DEXT 5% WATER 218 ML IV PRN (11:33)
[2021-10-11] MEDS: DEXAMETHASONE 10 MG/ML VIAL IV SCH ×2 (11:34→16:50)
[2021-10-11] MEDS: DOXYCYCLINE 100 MG in DEXT 5% WATER 100 ML IV SCH ×2 (11:34→20:18)
[2021-10-11] MEDS: IPRATROPIUM/ALBUTEROL 0.5-3(2.5)MG/3ML NEB HHN SCH ×4 (11:44→23:56)
[2021-10-11 14:28] LABS: PLATELET ESTIMATE NORMAL
[2021-10-11] MEDS ORDERED: MAGNESIUM HYDROXIDE 400MG/5ML 30ML UDC PO PRN (16:30)
[2021-10-11] MEDS: POLYETHYLENE GLYCOL 3350 (17GM) 1 DOSE PACK PO SCH (16:50)
[2021-10-11] MEDS ORDERED: SENNOSIDES/DOCUSATE SOD 8.6/50MG TABLET PO SCH (17:00)
[2021-10-11] MEDS: ENOXAPARIN 30MG/0.3ML SYR SUBCUT SCH (20:19)
[2021-10-11] MEDS: SENNOSIDES/DOCUSATE SOD 8.6/50MG TABLET PO SCH (20:24)
[2021-10-11] MEDS: FAMOTIDINE 20MG TABLET PO SCH (20:25)
[2021-10-11] MEDS: ACETAMINOPHEN 325MG TABLET PO PRN (20:39)
[2021-10-12] VITALS (87 sets, daily range): BP systolic 77–131; BP diastolic 35–77
[2021-10-12] MEDS: IPRATROPIUM/ALBUTEROL 0.5-3(2.5)MG/3ML NEB HHN SCH ×5 (03:55→20:16)
[2021-10-12 04:41] LABS: HEMATOCRIT. 33.1 % (42.0-52.0); HEMOGLOBIN. 10.8 g/dL (14.0-18.0); MEAN CORPUSCULAR HEMOGLOBIN 28.7 pg (28.0-32.0); MEAN CORPUSCULAR VOLUME 87.9 fL (80.0-94.0); MEAN PLATELET VOLUME 9.4 fl (7.4-10.4); PLATELET 223 x1000/uL (130-400); RED BLOOD CELL COUNT 3.77 mill/uL (4.7-6.1); RED CELL DISTRIBUTION WIDTH 16.3 % (11.6-14.6)
[2021-10-12 04:54] LABS: PHOSPHORUS 1.1 mg/dL (2.5-4.9)
[2021-10-12 07:54] LABS: PLATELET ESTIMATE NORMAL
[2021-10-12 08:15] LABS: BG BASE EXCESS 14.1 mmol/L (-2.0-2.0); BG CARBOXYHEMOGLOBIN 0.3 % (0.5-1.5); BG DEOXYHEMOGLOBIN 3.1 % (0.0-5.0); BG FRACTION INSPIRED OXYGEN 40; BG HCO3 ACT 37.5 mmol/L (22.0-26.0); BG METHEMOGLOBIN 0.3 % (0.0-1.5); BG OXYGEN SATURATION 96.9 % (92.0-98.5); BG OXYHEMOGLOBIN 96.3 % (94.0-97.0); BG PCO2 42.3 mmHg (35.0-45.0); BG PH 7.566 (7.350-7.450); BG PO2 89.6 mmHg (75.0-100.0); BG SAMPLE SITE RIGHT RADIAL; BG TOTAL HEMOGLOBIN 10.5 g/dL (12.0-18.0); BG VENT MODE VENT - AC
[2021-10-12] MEDS: ACETAMINOPHEN 325MG TABLET PO PRN ×3 (08:15→20:37)
[2021-10-12] MEDS: CLOPIDOGREL 75MG TABLET PO SCH (08:15)
[2021-10-12] MEDS: DEXAMETHASONE 10 MG/ML VIAL IV SCH ×2 (08:15→16:55)
[2021-10-12] MEDS: ASPIRIN 81MG EC TABLET PO SCH (08:16)
[2021-10-12] MEDS: SENNOSIDES/DOCUSATE SOD 8.6/50MG TABLET PO SCH ×2 (08:16→20:37)
[2021-10-12] MEDS: ASCORBIC ACID 500 MG TABLET PO SCH ×2 (08:16→20:37)
[2021-10-12] MEDS: POLYETHYLENE GLYCOL 3350 (17GM) 1 DOSE PACK PO SCH (08:16)
[2021-10-12] MEDS: DOXYCYCLINE 100 MG in DEXT 5% WATER 100 ML IV SCH ×2 (08:39→20:36)
[2021-10-12] MEDS ORDERED: SODIUM PHOS,M-BASIC-D-BASIC 30 MM in DEXT 5% WATER 500 ML IV NR (10:00)
[2021-10-12] MEDS ORDERED: LIDOCAINE HCL 1% 10 MG/ML 10ML VIAL ONE (13:03)
[2021-10-12] MEDS: FAMOTIDINE 20MG TABLET PO SCH (20:37)
[2021-10-12] MEDS: ENOXAPARIN 30MG/0.3ML SYR SUBCUT SCH (20:37)
[2021-10-13] VITALS (93 sets, daily range): BP systolic 85–135; BP diastolic 35–82
[2021-10-13] MEDS: IPRATROPIUM/ALBUTEROL 0.5-3(2.5)MG/3ML NEB HHN SCH ×6 (00:36→20:22)
[2021-10-13] MEDS: NOREPINEPHRINE 32 MG in DEXT 5% WATER 218 ML IV PRN (03:34)
[2021-10-13 05:37] LABS: HEMATOCRIT. 31.3 % (42.0-52.0); MEAN CORPUSCULAR HEMOGLOBIN 28.2 pg (28.0-32.0); MEAN CORPUSCULAR VOLUME 88.5 fL (80.0-94.0); MEAN PLATELET VOLUME 9.5 fl (7.4-10.4); PLATELET 245 x1000/uL (130-400); RED BLOOD CELL COUNT 3.53 mill/uL (4.7-6.1); RED CELL DISTRIBUTION WIDTH 16.8 % (11.6-14.6)
[2021-10-13 06:08] LABS: PHOSPHORUS 3.3 mg/dL (2.5-4.9)
[2021-10-13 08:25] LABS: BG BASE EXCESS 12.2 mmol/L (-2.0-2.0); BG CARBOXYHEMOGLOBIN 0.1 % (0.5-1.5); BG DEOXYHEMOGLOBIN 3.3 % (0.0-5.0); BG HCO3 ACT 35.9 mmol/L (22.0-26.0); BG METHEMOGLOBIN 0.3 % (0.0-1.5); BG OXYGEN SATURATION 96.7 % (92.0-98.5); BG OXYHEMOGLOBIN 96.3 % (94.0-97.0); BG PCO2 42.7 mmHg (35.0-45.0); BG PH 7.543 (7.350-7.450); BG PO2 87.9 mmHg (75.0-100.0); BG SAMPLE SITE RIGHT RADIAL; BG TOTAL HEMOGLOBIN 11.5 g/dL (12.0-18.0); BG VENT MODE VENT - SIMV
[2021-10-13] MEDS: DEXAMETHASONE 10 MG/ML VIAL IV SCH ×2 (08:40→18:04)
[2021-10-13] MEDS: CLOPIDOGREL 75MG TABLET PO SCH (08:40)
[2021-10-13] MEDS: ASCORBIC ACID 500 MG TABLET PO SCH ×2 (08:40→20:37)
[2021-10-13] MEDS: POLYETHYLENE GLYCOL 3350 (17GM) 1 DOSE PACK PO SCH (08:40)
[2021-10-13] MEDS: ASPIRIN 81MG EC TABLET PO SCH (08:40)
[2021-10-13] MEDS: SENNOSIDES/DOCUSATE SOD 8.6/50MG TABLET PO SCH ×2 (08:40→20:37)
[2021-10-13] MEDS: DOXYCYCLINE 100 MG in DEXT 5% WATER 100 ML IV SCH ×2 (08:40→20:37)
[2021-10-13 09:28] LABS: NUCLEATED RED BLOOD CELLS 2 /100 WBC; PLATELET ESTIMATE NORMAL
[2021-10-13] MEDS ORDERED: INSULIN GLARGINE 100 UNITS/ML SUBCUT NR (10:45)
[2021-10-13] MEDS ORDERED: POTASSIUM CHLORIDE 20MEQ/PACKET PO NR (10:45)
[2021-10-13] MEDS ORDERED: NA PHOS,M-B/NA PHOS,DI-BA ENEMA 118ML PR SCH (11:00)
[2021-10-13] MEDS: ACETAZOLAMIDE 500MG ER CAPSULE PO SCH (13:25)
[2021-10-13] MEDS: FAMOTIDINE 20MG TABLET PO SCH (20:37)
[2021-10-13] MEDS: ENOXAPARIN 30MG/0.3ML SYR SUBCUT SCH (20:38)
[2021-10-14] VITALS (77 sets, daily range): BP systolic 79–138; BP diastolic 21–83
[2021-10-14] MEDS: IPRATROPIUM/ALBUTEROL 0.5-3(2.5)MG/3ML NEB HHN SCH ×6 (00:18→20:22)
[2021-10-14 06:00] LABS: HEMATOCRIT 29.5 % (42.0-52.0); HEMOGLOBIN 9.7 g/dL (14.0-18.0); MEAN CORPUSCULAR HEMOGLOBIN 29.2 pg (28.0-32.0); MEAN CORPUSCULAR VOLUME 89.1 fL (80.0-94.0); PLATELET 209 x1000/uL (130-400); RED BLOOD CELL COUNT 3.31 mill/uL (4.7-6.1); RED CELL DISTRIBUTION WIDTH 16.9 % (11.6-14.6)
[2021-10-14 07:53] LABS: BG BASE EXCESS 8.3 mmol/L (-2.0-2.0); BG CARBOXYHEMOGLOBIN 0.3 % (0.5-1.5); BG DEOXYHEMOGLOBIN 2.4 % (0.0-5.0); BG METHEMOGLOBIN 0.4 % (0.0-1.5); BG OXYGEN SATURATION 97.6 % (92.0-98.5); BG OXYHEMOGLOBIN 96.9 % (94.0-97.0); BG PCO2 40.8 mmHg (35.0-45.0); BG PH 7.512 (7.350-7.450); BG PO2 105.7 mmHg (75.0-100.0); BG SAMPLE SITE RIGHT RADIAL; BG TOTAL HEMOGLOBIN 9.9 g/dL (12.0-18.0); BG VENT MODE VENT - SIMV
[2021-10-14] MEDS: CLOPIDOGREL 75MG TABLET PO SCH (08:25)
[2021-10-14] MEDS: ASCORBIC ACID 500 MG TABLET PO SCH ×2 (08:25→20:05)
[2021-10-14] MEDS: ASPIRIN 81MG EC TABLET PO SCH (08:25)
[2021-10-14] MEDS: SENNOSIDES/DOCUSATE SOD 8.6/50MG TABLET PO SCH ×2 (08:25→20:05)
[2021-10-14] MEDS: POLYETHYLENE GLYCOL 3350 (17GM) 1 DOSE PACK PO SCH (08:25)
[2021-10-14] MEDS: ACETAMINOPHEN 325MG TABLET PO PRN (08:26)
[2021-10-14] MEDS: ERGOCALCIFEROL 50000UNITS CAPSULE PO SCH (08:32)
[2021-10-14] MEDS: DEXAMETHASONE 10 MG/ML VIAL IV SCH ×2 (08:32→17:43)
[2021-10-14] MEDS: ACETAZOLAMIDE 500MG ER CAPSULE PO SCH (08:33)
[2021-10-14] MEDS: DOXYCYCLINE 100 MG in DEXT 5% WATER 100 ML IV SCH ×2 (09:37→20:05)
[2021-10-14] MEDS ORDERED: INSULIN GLARGINE 100 UNITS/ML SUBCUT NR (10:45)
[2021-10-14] MEDS ORDERED: POTASSIUM CHLORIDE 20MEQ/PACKET PO NR (10:45)
[2021-10-14] MEDS ORDERED: DEXTROSE 50% WATER 50ML SYRINGE IV PRN (10:45)
[2021-10-14] MEDS: BLOOD SUGAR DIAGNOSTIC STRIP TEST SCH ×3 (11:56→23:44)
[2021-10-14] MEDS: INSULIN LISPRO 100 UNITS/ML SUBCUT SCH ×3 (11:59→23:51)
[2021-10-14] MEDS: FAMOTIDINE 20MG TABLET PO SCH (20:05)
[2021-10-14] MEDS: ENOXAPARIN 30MG/0.3ML SYR SUBCUT SCH (20:06)
[2021-10-15] VITALS (82 sets, daily range): BP systolic 84–193; BP diastolic 20–151
[2021-10-15] MEDS: IPRATROPIUM/ALBUTEROL 0.5-3(2.5)MG/3ML NEB HHN SCH ×6 (00:17→20:36)
[2021-10-15] MEDS: INSULIN LISPRO 100 UNITS/ML SUBCUT SCH ×4 (05:29→23:23)
[2021-10-15] MEDS: BLOOD SUGAR DIAGNOSTIC STRIP TEST SCH ×4 (05:30→23:18)
[2021-10-15 05:36] LABS: HEMATOCRIT. 28.8 % (42.0-52.0); HEMOGLOBIN. 9.3 g/dL (14.0-18.0); MEAN CORPUSCULAR HEMOGLOBIN 29.3 pg (28.0-32.0); MEAN CORPUSCULAR VOLUME 90.5 fL (80.0-94.0); MEAN PLATELET VOLUME 10.2 fl (7.4-10.4); PLATELET 218 x1000/uL (130-400); RED BLOOD CELL COUNT 3.18 mill/uL (4.7-6.1); RED CELL DISTRIBUTION WIDTH 16.8 % (11.6-14.6)
[2021-10-15] MEDS: NOREPINEPHRINE 32 MG in DEXT 5% WATER 218 ML IV PRN (05:46)
[2021-10-15 05:48] LABS: PHOSPHORUS 4.6 mg/dL (2.5-4.9)
[2021-10-15 07:55] LABS: BG BASE EXCESS 5.6 mmol/L (-2.0-2.0); BG CARBOXYHEMOGLOBIN 0.3 % (0.5-1.5); BG DEOXYHEMOGLOBIN 2.6 % (0.0-5.0); BG FRACTION INSPIRED OXYGEN 40; BG HCO3 ACT 30.5 mmol/L (22.0-26.0); BG METHEMOGLOBIN 0.6 % (0.0-1.5); BG OXYGEN SATURATION 97.4 % (92.0-98.5); BG OXYHEMOGLOBIN 96.5 % (94.0-97.0); BG PCO2 46.5 mmHg (35.0-45.0); BG PH 7.435 (7.350-7.450); BG PO2 107.4 mmHg (75.0-100.0); BG SAMPLE SITE RIGHT RADIAL; BG TOTAL HEMOGLOBIN 10.3 g/dL (12.0-18.0); BG VENT MODE VENT - SIMV
[2021-10-15 08:04] LABS: PLATELET ESTIMATE NORMAL
[2021-10-15] MEDS: SENNOSIDES/DOCUSATE SOD 8.6/50MG TABLET PO SCH ×2 (08:10→20:24)
[2021-10-15] MEDS: ASCORBIC ACID 500 MG TABLET PO SCH ×2 (08:10→20:24)
[2021-10-15] MEDS: DEXAMETHASONE 10 MG/ML VIAL IV SCH ×2 (08:10→17:13)
[2021-10-15] MEDS: ACETAZOLAMIDE 500MG ER CAPSULE PO SCH (08:10)
[2021-10-15] MEDS: POLYETHYLENE GLYCOL 3350 (17GM) 1 DOSE PACK PO SCH (08:10)
[2021-10-15] MEDS: ASPIRIN 81MG EC TABLET PO SCH (08:10)
[2021-10-15] MEDS: CLOPIDOGREL 75MG TABLET PO SCH (08:10)
[2021-10-15] MEDS: DOXYCYCLINE 100 MG in DEXT 5% WATER 100 ML IV SCH (08:10)
[2021-10-15] MEDS: ACETAMINOPHEN 325MG TABLET PO PRN (08:11)
[2021-10-15] MEDS: ENOXAPARIN 30MG/0.3ML SYR SUBCUT SCH (20:24)
[2021-10-15] MEDS: FAMOTIDINE 20MG TABLET PO SCH (20:24)
[2021-10-16] VITALS (80 sets, daily range): BP systolic 64–171; BP diastolic 32–154
[2021-10-16] MEDS: IPRATROPIUM/ALBUTEROL 0.5-3(2.5)MG/3ML NEB HHN SCH ×6 (00:43→20:48)
[2021-10-16 05:54] LABS: HEMATOCRIT 28.5 % (42.0-52.0); HEMOGLOBIN 9.1 g/dL (14.0-18.0); MEAN CORPUSCULAR HEMOGLOBIN 29.2 pg (28.0-32.0); MEAN CORPUSCULAR VOLUME 91.8 fL (80.0-94.0); PLATELET 245 x1000/uL (130-400); RED BLOOD CELL COUNT 3.11 mill/uL (4.7-6.1); RED CELL DISTRIBUTION WIDTH 16.6 % (11.6-14.6)
[2021-10-16] MEDS: BLOOD SUGAR DIAGNOSTIC STRIP TEST SCH ×4 (06:23→23:20)
[2021-10-16] MEDS: INSULIN LISPRO 100 UNITS/ML SUBCUT SCH ×4 (06:24→23:25)
[2021-10-16 06:54] LABS: BG BASE EXCESS 1.6 mmol/L (-2.0-2.0); BG CARBOXYHEMOGLOBIN 0.3 % (0.5-1.5); BG DEOXYHEMOGLOBIN 2.2 % (0.0-5.0); BG HCO3 ACT 26.3 mmol/L (22.0-26.0); BG METHEMOGLOBIN 0.2 % (0.0-1.5); BG OXYGEN SATURATION 97.8 % (92.0-98.5); BG OXYHEMOGLOBIN 97.3 % (94.0-97.0); BG PCO2 41.6 mmHg (35.0-45.0); BG PH 7.418 (7.350-7.450); BG PO2 112.9 mmHg (75.0-100.0); BG SAMPLE SITE RIGHT RADIAL; BG TOTAL HEMOGLOBIN 10.1 g/dL (12.0-18.0); BG VENT MODE VENT - SIMV
[2021-10-16] MEDS: POLYETHYLENE GLYCOL 3350 (17GM) 1 DOSE PACK PO SCH (09:20)
[2021-10-16] MEDS: SENNOSIDES/DOCUSATE SOD 8.6/50MG TABLET PO SCH ×2 (09:20→20:01)
[2021-10-16] MEDS: DEXAMETHASONE 10 MG/ML VIAL IV SCH ×2 (09:20→16:31)
[2021-10-16] MEDS: CLOPIDOGREL 75MG TABLET PO SCH (09:20)
[2021-10-16] MEDS: ASCORBIC ACID 500 MG TABLET PO SCH ×2 (09:20→20:02)
[2021-10-16] MEDS: ACETAZOLAMIDE 500MG ER CAPSULE PO SCH (09:20)
[2021-10-16] MEDS: ASPIRIN 81MG EC TABLET PO SCH (09:20)
[2021-10-16] MEDS: FAMOTIDINE 20MG TABLET PO SCH (20:02)
[2021-10-16] MEDS: ENOXAPARIN 30MG/0.3ML SYR SUBCUT SCH (20:02)
[2021-10-17] VITALS (60 sets, daily range): BP systolic 67–161; BP diastolic 44–127
[2021-10-17] MEDS: IPRATROPIUM/ALBUTEROL 0.5-3(2.5)MG/3ML NEB HHN SCH ×5 (00:54→16:45)
[2021-10-17] MEDS: BLOOD SUGAR DIAGNOSTIC STRIP TEST SCH ×4 (05:22→23:53)
[2021-10-17] MEDS: INSULIN LISPRO 100 UNITS/ML SUBCUT SCH ×4 (05:31→23:55)
[2021-10-17 05:33] LABS: HEMATOCRIT. 24.4 % (42.0-52.0); HEMOGLOBIN. 7.9 g/dL (14.0-18.0); MEAN CORPUSCULAR HEMOGLOBIN 30.7 pg (28.0-32.0); MEAN CORPUSCULAR VOLUME 95.1 fL (80.0-94.0); MEAN PLATELET VOLUME 10.4 fl (7.4-10.4); PLATELET 206 x1000/uL (130-400); RED BLOOD CELL COUNT 2.57 mill/uL (4.7-6.1); RED CELL DISTRIBUTION WIDTH 17.2 % (11.6-14.6)
[2021-10-17 05:53] LABS: PHOSPHORUS 4.5 mg/dL (2.5-4.9)
[2021-10-17 08:23] LABS: BG CARBOXYHEMOGLOBIN 0.3 % (0.5-1.5); BG DEOXYHEMOGLOBIN 1.9 % (0.0-5.0); BG FRACTION INSPIRED OXYGEN 40; BG METHEMOGLOBIN 0.2 % (0.0-1.5); BG OXYGEN SATURATION 98.1 % (92.0-98.5); BG OXYHEMOGLOBIN 97.6 % (94.0-97.0); BG PCO2 44.1 mmHg (35.0-45.0); BG PH 7.405 (7.350-7.450); BG PO2 140.4 mmHg (75.0-100.0); BG SAMPLE SITE RIGHT RADIAL; BG TOTAL HEMOGLOBIN 9.6 g/dL (12.0-18.0); BG VENT MODE VENT - CPAP
[2021-10-17 08:59] LABS: CHLORIDE 116 mEq/L (98-107)
[2021-10-17] MEDS ORDERED: POTASSIUM CHLORIDE 20MEQ/PACKET PO NR (09:00)
[2021-10-17] MEDS: CLOPIDOGREL 75MG TABLET PO SCH (09:24)
[2021-10-17] MEDS: POLYETHYLENE GLYCOL 3350 (17GM) 1 DOSE PACK PO SCH (09:24)
[2021-10-17] MEDS: ASCORBIC ACID 500 MG TABLET PO SCH ×2 (09:24→21:27)
[2021-10-17] MEDS: ASPIRIN 81MG EC TABLET PO SCH (09:24)
[2021-10-17] MEDS: ACETAZOLAMIDE 500MG ER CAPSULE PO SCH (09:24)
[2021-10-17] MEDS: DEXAMETHASONE 10 MG/ML VIAL IV SCH ×2 (09:24→16:24)
[2021-10-17] MEDS: SENNOSIDES/DOCUSATE SOD 8.6/50MG TABLET PO SCH ×2 (09:26→21:26)
[2021-10-17 11:28] LABS: PLATELET ESTIMATE NORMAL
[2021-10-17 18:36] LABS: HEMATOCRIT. 31.1 % (42.0-52.0); HEMOGLOBIN. 9.4 g/dL (14.0-18.0); MEAN CORPUSCULAR HEMOGLOBIN 28.8 pg (28.0-32.0); MEAN CORPUSCULAR VOLUME 94.7 fL (80.0-94.0); MEAN PLATELET VOLUME 9.8 fl (7.4-10.4); PLATELET 228 x1000/uL (130-400); RED BLOOD CELL COUNT 3.28 mill/uL (4.7-6.1); RED CELL DISTRIBUTION WIDTH 17.2 % (11.6-14.6)
[2021-10-17] MEDS: FAMOTIDINE 20MG TABLET PO SCH (21:26)
[2021-10-17] MEDS: ENOXAPARIN 30MG/0.3ML SYR SUBCUT SCH (21:27)
[2021-10-17 21:48] LABS: PLATELET ESTIMATE NORMAL
[2021-10-18] VITALS (44 sets, daily range): BP systolic 91–164; BP diastolic 33–116
[2021-10-18] MEDS: BLOOD SUGAR DIAGNOSTIC STRIP TEST SCH ×3 (05:11→18:15)
[2021-10-18] MEDS: INSULIN LISPRO 100 UNITS/ML SUBCUT SCH ×3 (05:15→17:25)
[2021-10-18 05:56] LABS: CHLORIDE 127 mEq/L (98-107)
[2021-10-18] MEDS ORDERED: POTASSIUM CHLORIDE INJ 40 MEQ in DEXT 5% WATER 250 ML IV ONE (07:00)
[2021-10-18 08:29] LABS: BG BASE EXCESS 4.5 mmol/L (-2.0-2.0); BG CARBOXYHEMOGLOBIN 0.3 % (0.5-1.5); BG DEOXYHEMOGLOBIN 0.8 % (0.0-5.0); BG FRACTION INSPIRED OXYGEN 100; BG HCO3 ACT 33.5 mmol/L (22.0-26.0); BG METHEMOGLOBIN 0.3 % (0.0-1.5); BG OXYGEN SATURATION 99.2 % (92.0-98.5); BG OXYHEMOGLOBIN 98.6 % (94.0-97.0); BG PCO2 77.1 mmHg (35.0-45.0); BG PH 7.256 (7.350-7.450); BG PO2 245.9 mmHg (75.0-100.0); BG SAMPLE SITE RIGHT RADIAL; BG TOTAL HEMOGLOBIN 11.1 g/dL (12.0-18.0); BG VENT MODE MASK - NRB
[2021-10-18] MEDS: KCL 20MEQ/100ML X 2 FOR TOTAL KCL 40MEQ/200ML IV SCH ×2 (08:59→11:16)
[2021-10-18] MEDS: DEXAMETHASONE 10 MG/ML VIAL IV SCH ×2 (08:59→17:25)
[2021-10-18] MEDS: ASPIRIN 81MG EC TABLET PO SCH (08:59)
[2021-10-18] MEDS: POLYETHYLENE GLYCOL 3350 (17GM) 1 DOSE PACK PO SCH (08:59)
[2021-10-18] MEDS: SENNOSIDES/DOCUSATE SOD 8.6/50MG TABLET PO SCH ×2 (09:00→20:53)
[2021-10-18] MEDS: ACETAZOLAMIDE 500MG ER CAPSULE PO SCH (09:00)
[2021-10-18] MEDS: CLOPIDOGREL 75MG TABLET PO SCH (09:00)
[2021-10-18] MEDS: ASCORBIC ACID 500 MG TABLET PO SCH ×2 (09:24→20:52)
[2021-10-18 10:52] LABS: HEMATOCRIT. 31.5 % (42.0-52.0); HEMOGLOBIN. 9.7 g/dL (14.0-18.0); MEAN CORPUSCULAR HEMOGLOBIN 28.1 pg (28.0-32.0); MEAN CORPUSCULAR VOLUME 91.6 fL (80.0-94.0); MEAN PLATELET VOLUME 9.6 fl (7.4-10.4); PLATELET 269 x1000/uL (130-400); RED BLOOD CELL COUNT 3.44 mill/uL (4.7-6.1); RED CELL DISTRIBUTION WIDTH 16.9 % (11.6-14.6)
[2021-10-18 11:02] LABS: CHLORIDE 116 mEq/L (98-107)
[2021-10-18 11:04] LABS: PARTIAL THROMBOPLASTIN TIME 21.7 sec (23.4-31.0); PROTHROMBIN TIME 10.5 sec (9.6-11.0)
[2021-10-18 11:09] LABS: PHOSPHORUS 5.2 mg/dL (2.5-4.9)
[2021-10-18 11:13] LABS: ATYPICAL LYMPHOCYTES 1; NUCLEATED RED BLOOD CELLS 4 /100 WBC; PLATELET ESTIMATE NORMAL
[2021-10-18] MEDS ORDERED: IPRATROPIUM/ALBUTEROL 0.5-3(2.5)MG/3ML NEB HHN PRN (11:45)
[2021-10-18] MEDS: FAMOTIDINE 20MG TABLET PO SCH (20:52)
[2021-10-18] MEDS: ENOXAPARIN 30MG/0.3ML SYR SUBCUT SCH (20:52)
[2021-10-19] VITALS (95 sets, daily range): BP systolic 43–171; BP diastolic 19–133
[2021-10-19] MEDS: BLOOD SUGAR DIAGNOSTIC STRIP TEST SCH ×5 (00:02→23:16)
[2021-10-19] MEDS: INSULIN LISPRO 100 UNITS/ML SUBCUT SCH ×5 (00:06→23:21)
[2021-10-19] MEDS: NOREPINEPHRINE 32 MG in DEXT 5% WATER 218 ML IV PRN (01:28)
[2021-10-19 07:50] LABS: BG BASE EXCESS 2.6 mmol/L (-2.0-2.0); BG CARBOXYHEMOGLOBIN 0.3 % (0.5-1.5); BG DEOXYHEMOGLOBIN 2.7 % (0.0-5.0); BG HCO3 ACT 27.8 mmol/L (22.0-26.0); BG METHEMOGLOBIN 0.2 % (0.0-1.5); BG OXYGEN SATURATION 97.3 % (92.0-98.5); BG OXYHEMOGLOBIN 96.8 % (94.0-97.0); BG PCO2 46.2 mmHg (35.0-45.0); BG PH 7.398 (7.350-7.450); BG PO2 106.4 mmHg (75.0-100.0); BG SAMPLE SITE RIGHT RADIAL; BG TOTAL HEMOGLOBIN 10.5 g/dL (12.0-18.0); BG VENT MODE MASK - BIPAP
[2021-10-19] MEDS: ASPIRIN 81MG EC TABLET PO SCH (08:12)
[2021-10-19] MEDS: SENNOSIDES/DOCUSATE SOD 8.6/50MG TABLET PO SCH ×2 (08:12→21:14)
[2021-10-19] MEDS: DEXAMETHASONE 10 MG/ML VIAL IV SCH ×2 (08:12→18:17)
[2021-10-19] MEDS: ASCORBIC ACID 500 MG TABLET PO SCH ×2 (08:12→21:14)
[2021-10-19] MEDS: POLYETHYLENE GLYCOL 3350 (17GM) 1 DOSE PACK PO SCH (08:12)
[2021-10-19] MEDS: CLOPIDOGREL 75MG TABLET PO SCH (08:13)
[2021-10-19 09:57] LABS: HEMATOCRIT 29.4 % (42.0-52.0); HEMOGLOBIN 9.2 g/dL (14.0-18.0); MEAN CORPUSCULAR HEMOGLOBIN 28.8 pg (28.0-32.0); PLATELET 267 x1000/uL (130-400); RED CELL DISTRIBUTION WIDTH 17.3 % (11.6-14.6)
[2021-10-19 10:11] LABS: PHOSPHORUS 3.1 mg/dL (2.5-4.9)
[2021-10-19] MEDS ORDERED: MIDODRINE HCL 5MG TABLET PO SCH (10:15)
[2021-10-19] MEDS: MIDODRINE HCL 5MG TABLET PO SCH ×2 (12:24→21:14)
[2021-10-19] MEDS: DEXTROSE 5% WATER 1,000 ML IV SCH (12:41)
[2021-10-19] MEDS: IPRATROPIUM/ALBUTEROL 0.5-3(2.5)MG/3ML NEB HHN SCH ×3 (13:24→20:11)
[2021-10-19] MEDS: FAMOTIDINE 20MG TABLET PO SCH (21:14)
[2021-10-19] MEDS: ENOXAPARIN 30MG/0.3ML SYR SUBCUT SCH (21:14)
[2021-10-20] VITALS (76 sets, daily range): BP systolic 85–161; BP diastolic 42–110
[2021-10-20] MEDS: IPRATROPIUM/ALBUTEROL 0.5-3(2.5)MG/3ML NEB HHN SCH ×6 (00:12→21:13)
[2021-10-20] MEDS: MIDODRINE HCL 5MG TABLET PO SCH ×3 (05:07→21:06)
[2021-10-20] MEDS: BLOOD SUGAR DIAGNOSTIC STRIP TEST SCH ×4 (05:07→23:26)
[2021-10-20] MEDS: INSULIN LISPRO 100 UNITS/ML SUBCUT SCH ×4 (05:17→23:25)
[2021-10-20 05:22] LABS: CHLORIDE 111 mEq/L (98-107)
[2021-10-20 05:30] LABS: PHOSPHORUS 3.5 mg/dL (2.5-4.9)
[2021-10-20] MEDS: DEXTROSE 5% WATER 1,000 ML IV SCH ×2 (07:20→23:28)
[2021-10-20] MEDS: SENNOSIDES/DOCUSATE SOD 8.6/50MG TABLET PO SCH ×2 (10:01→21:05)
[2021-10-20] MEDS: DEXAMETHASONE 10 MG/ML VIAL IV SCH (10:01)
[2021-10-20] MEDS: POLYETHYLENE GLYCOL 3350 (17GM) 1 DOSE PACK PO SCH (10:01)
[2021-10-20] MEDS: ASCORBIC ACID 500 MG TABLET PO SCH ×2 (10:02→21:05)
[2021-10-20] MEDS: ASPIRIN 81MG EC TABLET PO SCH (10:02)
[2021-10-20] MEDS: CLOPIDOGREL 75MG TABLET PO SCH (10:02)
[2021-10-20 10:56] LABS: BG BASE EXCESS 0.9 mmol/L (-2.0-2.0); BG CARBOXYHEMOGLOBIN 0.3 % (0.5-1.5); BG FRACTION INSPIRED OXYGEN 30; BG HCO3 ACT 25.4 mmol/L (22.0-26.0); BG METHEMOGLOBIN 0.6 % (0.0-1.5); BG OXYHEMOGLOBIN 97.1 % (94.0-97.0); BG PO2 127.3 mmHg (75.0-100.0); BG SAMPLE SITE RIGHT RADIAL; BG TOTAL HEMOGLOBIN 8.9 g/dL (12.0-18.0); BG VENT MODE MASK - BIPAP
[2021-10-20] MEDS: THEOPHYLLINE ANHYDROUS 80 MG/15 ML 120ML PO SCH ×3 (13:27→23:25)
[2021-10-20] MEDS: ENOXAPARIN 30MG/0.3ML SYR SUBCUT SCH (21:05)
[2021-10-20] MEDS: FAMOTIDINE 20MG TABLET PO SCH (21:06)
[2021-10-21] VITALS (47 sets, daily range): BP systolic 86–186; BP diastolic 38–124
[2021-10-21] MEDS: IPRATROPIUM/ALBUTEROL 0.5-3(2.5)MG/3ML NEB HHN SCH ×6 (00:50→20:34)
[2021-10-21 04:54] LABS: CHLORIDE 110 mEq/L (98-107)
[2021-10-21 05:02] LABS: PHOSPHORUS 3.1 mg/dL (2.5-4.9)
[2021-10-21] MEDS: INSULIN LISPRO 100 UNITS/ML SUBCUT SCH ×4 (05:14→23:10)
[2021-10-21] MEDS: THEOPHYLLINE ANHYDROUS 80 MG/15 ML 120ML PO SCH ×4 (05:14→23:10)
[2021-10-21] MEDS: BLOOD SUGAR DIAGNOSTIC STRIP TEST SCH ×4 (05:14→23:10)
[2021-10-21] MEDS: MIDODRINE HCL 5MG TABLET PO SCH ×3 (05:16→21:04)
[2021-10-21] MEDS: POLYETHYLENE GLYCOL 3350 (17GM) 1 DOSE PACK PO SCH (09:09)
[2021-10-21] MEDS: CLOPIDOGREL 75MG TABLET PO SCH (09:09)
[2021-10-21] MEDS: DEXAMETHASONE 10 MG/ML VIAL IV SCH (09:09)
[2021-10-21] MEDS: ERGOCALCIFEROL 50000UNITS CAPSULE PO SCH (09:10)
[2021-10-21] MEDS: ASCORBIC ACID 500 MG TABLET PO SCH ×2 (09:10→21:04)
[2021-10-21] MEDS: SENNOSIDES/DOCUSATE SOD 8.6/50MG TABLET PO SCH ×2 (09:11→21:04)
[2021-10-21] MEDS: ASPIRIN 81MG EC TABLET PO SCH (09:11)
[2021-10-21 09:19] LABS: BG BASE EXCESS 1.7 mmol/L (-2.0-2.0); BG CARBOXYHEMOGLOBIN 0.2 % (0.5-1.5); BG DEOXYHEMOGLOBIN 2.4 % (0.0-5.0); BG FRACTION INSPIRED OXYGEN 30; BG HCO3 ACT 26.4 mmol/L (22.0-26.0); BG METHEMOGLOBIN 0.3 % (0.0-1.5); BG OXYGEN SATURATION 97.6 % (92.0-98.5); BG OXYHEMOGLOBIN 97.1 % (94.0-97.0); BG PCO2 41.5 mmHg (35.0-45.0); BG PH 7.421 (7.350-7.450); BG PO2 103.4 mmHg (75.0-100.0); BG SAMPLE SITE RIGHT RADIAL; BG TOTAL HEMOGLOBIN 10.7 g/dL (12.0-18.0); BG TOTAL RESPIRATORY RATE 31 b/min; BG VENT MODE MASK - BIPAP
[2021-10-21] MEDS: FAMOTIDINE 20MG TABLET PO SCH (21:04)
[2021-10-21] MEDS: ENOXAPARIN 30MG/0.3ML SYR SUBCUT SCH (21:04)
[2021-10-21] MEDS: DEXTROSE 5% WATER 1,000 ML IV SCH (21:05)
[2021-10-22] VITALS (30 sets, daily range): BP systolic 85–140; BP diastolic 36–93
[2021-10-22] MEDS: IPRATROPIUM/ALBUTEROL 0.5-3(2.5)MG/3ML NEB HHN SCH ×6 (00:15→20:41)
[2021-10-22 05:57] LABS: HEMATOCRIT. 27.6 % (42.0-52.0); HEMOGLOBIN. 8.7 g/dL (14.0-18.0); MEAN CORPUSCULAR HEMOGLOBIN 28.8 pg (28.0-32.0); MEAN CORPUSCULAR VOLUME 91.1 fL (80.0-94.0); PLATELET 200 x1000/uL (130-400); RED BLOOD CELL COUNT 3.03 mill/uL (4.7-6.1); RED CELL DISTRIBUTION WIDTH 17.2 % (11.6-14.6)
[2021-10-22] MEDS: INSULIN LISPRO 100 UNITS/ML SUBCUT SCH ×4 (06:00→23:58)
[2021-10-22] MEDS: MIDODRINE HCL 5MG TABLET PO SCH ×3 (06:00→22:00)
[2021-10-22] MEDS: THEOPHYLLINE ANHYDROUS 80 MG/15 ML 120ML PO SCH ×4 (06:00→23:56)
[2021-10-22] MEDS: BLOOD SUGAR DIAGNOSTIC STRIP TEST SCH ×4 (06:00→23:32)
[2021-10-22 06:29] LABS: CHLORIDE 109 mEq/L (98-107)
[2021-10-22 06:40] LABS: PHOSPHORUS 3.5 mg/dL (2.5-4.9)
[2021-10-22] MEDS: POLYETHYLENE GLYCOL 3350 (17GM) 1 DOSE PACK PO SCH (09:14)
[2021-10-22] MEDS: SENNOSIDES/DOCUSATE SOD 8.6/50MG TABLET PO SCH ×2 (09:15→21:59)
[2021-10-22] MEDS: DEXAMETHASONE 10 MG/ML VIAL IV SCH (09:15)
[2021-10-22] MEDS: ASPIRIN 81MG EC TABLET PO SCH (09:16)
[2021-10-22] MEDS: ASCORBIC ACID 500 MG TABLET PO SCH ×2 (09:16→22:01)
[2021-10-22] MEDS: CLOPIDOGREL 75MG TABLET PO SCH (09:16)
[2021-10-22 11:00] LABS: PLATELET ESTIMATE NORMAL
[2021-10-22] MEDS: DEXTROSE 5% WATER 1,000 ML IV SCH (18:31)
[2021-10-22] MEDS: CEFTRIAXONE 1,000 MG in DEXTROSE 5% WATER 50 ML IV SCH (18:31)
[2021-10-22] MEDS: ENOXAPARIN 30MG/0.3ML SYR SUBCUT SCH (21:59)
[2021-10-22] MEDS: FAMOTIDINE 20MG TABLET PO SCH (21:59)
[2021-10-23] VITALS (12 sets, daily range): BP systolic 46–147; BP diastolic 36–120
[2021-10-23] MEDS: IPRATROPIUM/ALBUTEROL 0.5-3(2.5)MG/3ML NEB HHN SCH ×6 (00:40→20:11)
[2021-10-23] MEDS: THEOPHYLLINE ANHYDROUS 80 MG/15 ML 120ML PO SCH ×4 (06:00→23:45)
[2021-10-23] MEDS: BLOOD SUGAR DIAGNOSTIC STRIP TEST SCH ×4 (06:00→23:45)
[2021-10-23] MEDS: INSULIN LISPRO 100 UNITS/ML SUBCUT SCH ×4 (06:00→23:45)
[2021-10-23] MEDS: MIDODRINE HCL 5MG TABLET PO SCH ×3 (06:00→22:17)
[2021-10-23 06:21] LABS: HEMOGLOBIN. 9.2 g/dL (14.0-18.0); MEAN CORPUSCULAR HEMOGLOBIN 29.8 pg (28.0-32.0); MEAN CORPUSCULAR VOLUME 93.5 fL (80.0-94.0); MEAN PLATELET VOLUME 10.1 fl (7.4-10.4); PLATELET 185 x1000/uL (130-400); RED CELL DISTRIBUTION WIDTH 18.1 % (11.6-14.6)
[2021-10-23 08:11] LABS: CHLORIDE 109 mEq/L (98-107)
[2021-10-23 08:26] LABS: PHOSPHORUS 4.2 mg/dL (2.5-4.9)
[2021-10-23] MEDS: ASCORBIC ACID 500 MG TABLET PO SCH ×2 (09:40→22:15)
[2021-10-23] MEDS: POLYETHYLENE GLYCOL 3350 (17GM) 1 DOSE PACK PO SCH (09:40)
[2021-10-23] MEDS: CLOPIDOGREL 75MG TABLET PO SCH (09:40)
[2021-10-23] MEDS: SENNOSIDES/DOCUSATE SOD 8.6/50MG TABLET PO SCH ×2 (09:40→22:16)
[2021-10-23] MEDS: ASPIRIN 81MG EC TABLET PO SCH (09:40)
[2021-10-23] MEDS: DEXAMETHASONE 10 MG/ML VIAL IV SCH (09:40)
[2021-10-23] MEDS: DEXTROSE 5% WATER 1,000 ML IV SCH (17:08)
[2021-10-23] MEDS: CEFTRIAXONE 1,000 MG in DEXTROSE 5% WATER 50 ML IV SCH (17:09)
[2021-10-23] MEDS: CEFEPIME 2,000 MG in DEXT 5% WATER 100 ML IV SCH (17:09)
[2021-10-23 20:42] LABS: PLATELET ESTIMATE NORMAL
[2021-10-23] MEDS: FAMOTIDINE 20MG TABLET PO SCH (22:16)
[2021-10-23] MEDS: ENOXAPARIN 30MG/0.3ML SYR SUBCUT SCH (22:19)
[2021-10-24] VITALS (12 sets, daily range): BP systolic 97–144; BP diastolic 60–76
[2021-10-24] MEDS: IPRATROPIUM/ALBUTEROL 0.5-3(2.5)MG/3ML NEB HHN SCH ×6 (00:07→20:35)
[2021-10-24] MEDS: THEOPHYLLINE ANHYDROUS 80 MG/15 ML 120ML PO SCH ×5 (06:03→23:41)
[2021-10-24] MEDS: MIDODRINE HCL 5MG TABLET PO SCH ×3 (06:04→21:44)
[2021-10-24] MEDS: BLOOD SUGAR DIAGNOSTIC STRIP TEST SCH ×4 (06:04→23:40)
[2021-10-24] MEDS: INSULIN LISPRO 100 UNITS/ML SUBCUT SCH ×4 (06:06→23:40)
[2021-10-24 06:36] LABS: CHLORIDE 105 mEq/L (98-107); HEMATOCRIT. 26.2 % (42.0-52.0); HEMOGLOBIN. 8.6 g/dL (14.0-18.0); MEAN CORPUSCULAR HEMOGLOBIN 29.2 pg (28.0-32.0); MEAN CORPUSCULAR VOLUME 88.7 fL (80.0-94.0); MEAN PLATELET VOLUME 10.3 fl (7.4-10.4); PLATELET 183 x1000/uL (130-400); RED BLOOD CELL COUNT 2.96 mill/uL (4.7-6.1); RED CELL DISTRIBUTION WIDTH 17.4 % (11.6-14.6)
[2021-10-24 06:44] LABS: PHOSPHORUS 3.5 mg/dL (2.5-4.9)
[2021-10-24] MEDS: CLOPIDOGREL 75MG TABLET PO SCH (09:00)
[2021-10-24] MEDS: ASPIRIN 81MG EC TABLET PO SCH (09:00)
[2021-10-24] MEDS: SENNOSIDES/DOCUSATE SOD 8.6/50MG TABLET PO SCH ×2 (10:02→21:43)
[2021-10-24] MEDS: POLYETHYLENE GLYCOL 3350 (17GM) 1 DOSE PACK PO SCH (10:02)
[2021-10-24] MEDS: ASCORBIC ACID 500 MG TABLET PO SCH ×2 (10:02→21:43)
[2021-10-24] MEDS: DEXAMETHASONE 10 MG/ML VIAL IV SCH (10:04)
[2021-10-24] MEDS: CEFEPIME 2,000 MG in DEXT 5% WATER 100 ML IV SCH (18:42)
[2021-10-24] MEDS: DEXTROSE 5% WATER 1,000 ML IV SCH (18:43)
[2021-10-24 18:55] LABS: PLATELET ESTIMATE NORMAL
[2021-10-24] MEDS ORDERED: ENOXAPARIN 30MG/0.3ML SYR SUBCUT SCH (21:00)
[2021-10-24] MEDS: FAMOTIDINE 20MG TABLET PO SCH (21:43)
[2021-10-24] MEDS ORDERED: TOPUD PO (22:27)
[2021-10-24] MEDS ORDERED: MOM PO (22:27)
[2021-10-24] MEDS ORDERED: THEOL PO (22:27)
[2021-10-24] MEDS ORDERED: ASCO500T20 PO (22:27)
[2021-10-24] MEDS ORDERED: FAMO20TA8 PO (22:27)
[2021-10-24] MEDS ORDERED: SENN1TAB35 PO (22:27)
[2021-10-24] MEDS ORDERED: MED4 MT (22:27)
[2021-10-24] MEDS ORDERED: CLOP75TA15 PO (22:27)
[2021-10-24] MEDS ORDERED: LOV30 SUBCUT (22:27)
[2021-10-24] MEDS ORDERED: POLY17PO3 PO (22:27)
[2021-10-24] MEDS ORDERED: IPRA3AMP9 HHN (22:27)
[2021-10-24] MEDS ORDERED: MIDO5TAB4 PO (22:28)
[2021-10-25] VITALS (13 sets, daily range): BP systolic 87–126; BP diastolic 41–72
[2021-10-25] MEDS: IPRATROPIUM/ALBUTEROL 0.5-3(2.5)MG/3ML NEB HHN SCH ×6 (00:53→19:49)
[2021-10-25] MEDS: THEOPHYLLINE ANHYDROUS 80 MG/15 ML 120ML PO SCH ×3 (05:28→17:46)
[2021-10-25] MEDS: BLOOD SUGAR DIAGNOSTIC STRIP TEST SCH ×3 (05:28→17:29)
[2021-10-25] MEDS: MIDODRINE HCL 5MG TABLET PO SCH ×3 (05:28→21:38)
[2021-10-25] MEDS: INSULIN LISPRO 100 UNITS/ML SUBCUT SCH ×3 (05:29→17:47)
[2021-10-25 06:24] LABS: HEMATOCRIT. 25.7 % (42.0-52.0); HEMOGLOBIN. 8.4 g/dL (14.0-18.0); MEAN CORPUSCULAR HEMOGLOBIN 29.2 pg (28.0-32.0); PLATELET 173 x1000/uL (130-400); RED BLOOD CELL COUNT 2.89 mill/uL (4.7-6.1); RED CELL DISTRIBUTION WIDTH 17.5 % (11.6-14.6)
[2021-10-25] MEDS: SENNOSIDES/DOCUSATE SOD 8.6/50MG TABLET PO SCH ×2 (08:54→21:34)
[2021-10-25] MEDS: CLOPIDOGREL 75MG TABLET PO SCH (08:54)
[2021-10-25] MEDS: DEXAMETHASONE 10 MG/ML VIAL IV SCH (08:54)
[2021-10-25] MEDS: ASCORBIC ACID 500 MG TABLET PO SCH ×2 (08:55→21:34)
[2021-10-25] MEDS: DEXTROSE 5% WATER 1,000 ML IV SCH (08:55)
[2021-10-25] MEDS: POLYETHYLENE GLYCOL 3350 (17GM) 1 DOSE PACK PO SCH (08:55)
[2021-10-25] MEDS: ASPIRIN 81MG EC TABLET PO SCH (08:56)
[2021-10-25 14:20] LABS: PLATELET ESTIMATE NORMAL
[2021-10-25] MEDS: CEFEPIME 2,000 MG in DEXT 5% WATER 100 ML IV SCH (17:47)
[2021-10-25] MEDS: FAMOTIDINE 20MG TABLET PO SCH (21:34)
[2021-10-26] VITALS (13 sets, daily range): BP systolic 91–154; BP diastolic 51–108
[2021-10-26] MEDS: IPRATROPIUM/ALBUTEROL 0.5-3(2.5)MG/3ML NEB HHN SCH ×6 (00:12→20:48)
[2021-10-26] MEDS: INSULIN LISPRO 100 UNITS/ML SUBCUT SCH ×4 (00:24→18:32)
[2021-10-26] MEDS: BLOOD SUGAR DIAGNOSTIC STRIP TEST SCH ×4 (00:25→18:00)
[2021-10-26] MEDS: DEXTROSE 5% WATER 1,000 ML IV SCH (05:02)
[2021-10-26 06:08] LABS: HEMATOCRIT. 32.1 % (42.0-52.0); HEMOGLOBIN. 9.6 g/dL (14.0-18.0); MEAN CORPUSCULAR HEMOGLOBIN 29.5 pg (28.0-32.0); MEAN CORPUSCULAR VOLUME 98.6 fL (80.0-94.0); MEAN PLATELET VOLUME 9.9 fl (7.4-10.4); PLATELET 177 x1000/uL (130-400); RED BLOOD CELL COUNT 3.26 mill/uL (4.7-6.1); RED CELL DISTRIBUTION WIDTH 18.9 % (11.6-14.6)
[2021-10-26] MEDS: MIDODRINE HCL 5MG TABLET PO SCH ×3 (06:09→21:58)
[2021-10-26] MEDS: THEOPHYLLINE ANHYDROUS 80 MG/15 ML 120ML PO SCH ×4 (06:09→18:33)
[2021-10-26 07:06] LABS: PROTHROMBIN TIME 10.3 sec (9.6-11.0)
[2021-10-26] MEDS: CLOPIDOGREL 75MG TABLET PO SCH (08:04)
[2021-10-26] MEDS: POLYETHYLENE GLYCOL 3350 (17GM) 1 DOSE PACK PO SCH (08:04)
[2021-10-26] MEDS: ASPIRIN 81MG EC TABLET PO SCH (08:04)
[2021-10-26] MEDS: SENNOSIDES/DOCUSATE SOD 8.6/50MG TABLET PO SCH ×2 (08:05→21:53)
[2021-10-26] MEDS: ASCORBIC ACID 500 MG TABLET PO SCH ×2 (08:05→21:53)
[2021-10-26] MEDS: DEXAMETHASONE 10 MG/ML VIAL IV SCH (08:31)
[2021-10-26 10:14] LABS: PLATELET ESTIMATE NORMAL
[2021-10-26] MEDS ORDERED: PROPOFOL 10MG/ML 100ML 100 ML IV PRN (10:15)
[2021-10-26] MEDS ORDERED: PROPOFOL 200MG/20ML VIAL IV ONE (11:14)
[2021-10-26] MEDS ORDERED: ONDANSETRON HCL 4MG/2ML INJ ONE (11:15)
[2021-10-26] MEDS ORDERED: DEXAMETHASONE 4MG/ML 1ML VIAL ONE (11:15)
[2021-10-26] MEDS: CEFEPIME 2,000 MG in DEXT 5% WATER 100 ML IV SCH (18:32)
[2021-10-26] MEDS: FAMOTIDINE 20MG TABLET PO SCH (21:53)
[2021-10-27] VITALS (12 sets, daily range): BP systolic 108–136; BP diastolic 64–104
[2021-10-27] MEDS: IPRATROPIUM/ALBUTEROL 0.5-3(2.5)MG/3ML NEB HHN SCH ×6 (00:13→20:57)
[2021-10-27] MEDS: THEOPHYLLINE ANHYDROUS 80 MG/15 ML 120ML PO SCH ×4 (02:03→17:27)
[2021-10-27] MEDS: MIDODRINE HCL 5MG TABLET PO SCH ×3 (06:00→21:25)
[2021-10-27] MEDS: INSULIN LISPRO 100 UNITS/ML SUBCUT SCH ×4 (06:00→17:26)
[2021-10-27 06:16] LABS: HEMATOCRIT. 33.2 % (42.0-52.0); HEMOGLOBIN. 10.6 g/dL (14.0-18.0); MEAN CORPUSCULAR HEMOGLOBIN 29.4 pg (28.0-32.0); MEAN CORPUSCULAR VOLUME 92.5 fL (80.0-94.0); RED BLOOD CELL COUNT 3.59 mill/uL (4.7-6.1); RED CELL DISTRIBUTION WIDTH 18.6 % (11.6-14.6)
[2021-10-27] MEDS: BLOOD SUGAR DIAGNOSTIC STRIP TEST SCH ×4 (06:31→17:05)
[2021-10-27 06:38] LABS: PHOSPHORUS 4.1 mg/dL (2.5-4.9)
[2021-10-27] MEDS: CLOPIDOGREL 75MG TABLET PO SCH (09:04)
[2021-10-27] MEDS: SENNOSIDES/DOCUSATE SOD 8.6/50MG TABLET PO SCH ×2 (09:04→21:25)
[2021-10-27] MEDS: ASCORBIC ACID 500 MG TABLET PO SCH ×2 (09:04→21:25)
[2021-10-27] MEDS: POLYETHYLENE GLYCOL 3350 (17GM) 1 DOSE PACK PO SCH (09:04)
[2021-10-27] MEDS: DEXAMETHASONE 10 MG/ML VIAL IV SCH (09:04)
[2021-10-27] MEDS: ASPIRIN 81MG EC TABLET PO SCH (09:05)
[2021-10-27 09:13] LABS: PLATELET ESTIMATE NORMAL
[2021-10-27 09:14] LABS: MEAN PLATELET VOLUME 9.7 fl (7.4-10.4); PLATELET 185 x1000/uL (130-400)
[2021-10-27 12:37] LABS: BG BASE EXCESS -3.6 mmol/L (-2.0-2.0); BG CARBOXYHEMOGLOBIN 0.3 % (0.5-1.5); BG DEOXYHEMOGLOBIN 3.6 % (0.0-5.0); BG HCO3 ACT 21.5 mmol/L (22.0-26.0); BG METHEMOGLOBIN 0.2 % (0.0-1.5); BG OXYGEN SATURATION 96.4 % (92.0-98.5); BG OXYHEMOGLOBIN 95.9 % (94.0-97.0); BG PO2 89.8 mmHg (75.0-100.0); BG SAMPLE SITE RIGHT RADIAL; BG TOTAL HEMOGLOBIN 10.2 g/dL (12.0-18.0); BG VENT MODE NASAL CANNULA
[2021-10-27] MEDS ORDERED: SODIUM POLYSTYRENE SULFONATE 15 G/60 ML BOT PO NR (13:45)
[2021-10-27] MEDS: CEFEPIME 2,000 MG in DEXT 5% WATER 100 ML IV SCH (17:26)
[2021-10-27] MEDS: FAMOTIDINE 20MG TABLET PO SCH (21:25)
[2021-10-28] VITALS (10 sets, daily range): BP systolic 70–159; BP diastolic 29–108
[2021-10-28] MEDS: THEOPHYLLINE ANHYDROUS 80 MG/15 ML 120ML PO SCH ×4 (00:08→17:55)
[2021-10-28] MEDS: INSULIN LISPRO 100 UNITS/ML SUBCUT SCH ×4 (00:09→17:55)
[2021-10-28] MEDS: BLOOD SUGAR DIAGNOSTIC STRIP TEST SCH ×4 (00:10→17:55)
[2021-10-28] MEDS: IPRATROPIUM/ALBUTEROL 0.5-3(2.5)MG/3ML NEB HHN SCH ×5 (00:16→16:09)
[2021-10-28] MEDS: MIDODRINE HCL 5MG TABLET PO SCH ×2 (05:10→15:11)
[2021-10-28] MEDS: ASCORBIC ACID 500 MG TABLET PO SCH (09:37)
[2021-10-28] MEDS: DEXAMETHASONE 10 MG/ML VIAL IV SCH (09:37)
[2021-10-28] MEDS: SENNOSIDES/DOCUSATE SOD 8.6/50MG TABLET PO SCH (09:37)
[2021-10-28] MEDS: CLOPIDOGREL 75MG TABLET PO SCH (09:37)
[2021-10-28] MEDS: ERGOCALCIFEROL 50000UNITS CAPSULE PO SCH (09:37)
[2021-10-28] MEDS: POLYETHYLENE GLYCOL 3350 (17GM) 1 DOSE PACK PO SCH (09:37)
[2021-10-28] MEDS: ASPIRIN 81MG EC TABLET PO SCH (09:37)
[2021-10-28] MEDS ORDERED: MORPHINE SULFATE 2 MG/ML CPJ (NOT FOR IM USE) IV PRN (15:45)
== END 2021-10-28 23:42 | DRG 720 ==
LOC: ER 11:38 → 8WST 16:22 → SUPCPDRO 16:29 → ENRESERV 17:21 → 8WST 18:11 → 7EST 10-07 09:38 → MICUSO 10-09 01:41 → MICUNO 10-09 15:37 → 7EST 10-10 21:52 → MICUNO 10-11 09:50 → MICUSO 10-15 12:19 → 5EST 10-22 11:30
PROVIDERS: ADMIT Internal Medicine; ATTEND Internal Medicine
PROC: 5A09457 Assistance with Respiratory Ventilation, 24-96 Consecutive Hours, Continuous Positive Airway Pressure (ICD-10-PCS; 2021-10-09)
PROC: 5A1955Z Respiratory Ventilation, Greater than 96 Consecutive Hours (ICD-10-PCS; principal; 2021-10-11)
PROC: 0BH17EZ Insertion of Endotracheal Airway into Trachea, Via Natural or Artificial Opening (ICD-10-PCS; 2021-10-11)
PROC: 0BH17EZ Insertion of Endotracheal Airway into Trachea, Via Natural or Artificial Opening (ICD-10-PCS; 2021-10-11)
PROC: 5A12012 Performance of Cardiac Output, Single, Manual (ICD-10-PCS; 2021-10-11)
PROC: 06HY33Z Insertion of Infusion Device into Lower Vein, Percutaneous Approach (ICD-10-PCS; 2021-10-11)
PROC: 05HY33Z Insertion of Infusion Device into Upper Vein, Percutaneous Approach (ICD-10-PCS; 2021-10-12)
PROC: B54NZZA Ultrasonography of Left Upper Extremity Veins, Guidance (ICD-10-PCS; 2021-10-12)
PROC: 5A09457 Assistance with Respiratory Ventilation, 24-96 Consecutive Hours, Continuous Positive Airway Pressure (ICD-10-PCS; 2021-10-18)
PROC: 5A09357 Assistance with Respiratory Ventilation, Less than 24 Consecutive Hours, Continuous Positive Airway Pressure (ICD-10-PCS; 2021-10-21)
PROC: 5A09357 Assistance with Respiratory Ventilation, Less than 24 Consecutive Hours, Continuous Positive Airway Pressure (ICD-10-PCS; 2021-10-22)
PROC: 5A09457 Assistance with Respiratory Ventilation, 24-96 Consecutive Hours, Continuous Positive Airway Pressure (ICD-10-PCS; 2021-10-23)
PROC: 0DH63UZ Insertion of Feeding Device into Stomach, Percutaneous Approach (ICD-10-PCS; 2021-10-26)
PROC: 5A09457 Assistance with Respiratory Ventilation, 24-96 Consecutive Hours, Continuous Positive Airway Pressure (ICD-10-PCS; 2021-10-26)
PROC: 0BH17EZ Insertion of Endotracheal Airway into Trachea, Via Natural or Artificial Opening (ICD-10-PCS; 2021-10-26)
PROC: 5A1935Z Respiratory Ventilation, Less than 24 Consecutive Hours (ICD-10-PCS; 2021-10-26)
PROC: 5A09357 Assistance with Respiratory Ventilation, Less than 24 Consecutive Hours, Continuous Positive Airway Pressure (ICD-10-PCS; 2021-10-28)
DX: A41.89 Other specified sepsis (principal); J96.21 Acute and chronic respiratory failure with hypoxia; N17.0 Acute kidney failure with tubular necrosis; J12.82 Pneumonia due to coronavirus disease 2019; G93.41 Metabolic encephalopathy; E44.0 Moderate protein-calorie malnutrition; U07.1 COVID-19; L89.896 Pressure-induced deep tissue damage of other site; Z66 Do not resuscitate; J44.0 Chronic obstructive pulmonary disease with (acute) lower respiratory infection; I46.9 Cardiac arrest, cause unspecified; I21.4 Non-ST elevation (NSTEMI) myocardial infarction; I50.43 Acute on chronic combined systolic (congestive) and diastolic (congestive) heart failure; E87.2 Acidosis; D63.8 Anemia in other chronic diseases classified elsewhere; I13.0 Hypertensive heart and chronic kidney disease with heart failure and stage 1 through stage 4 chronic kidney disease, or unspecified chronic kidney disease; J44.1 Chronic obstructive pulmonary disease with (acute) exacerbation; N18.32 Chronic kidney disease, stage 3b; J96.22 Acute and chronic respiratory failure with hypercapnia; E83.51 Hypocalcemia; R73.9 Hyperglycemia, unspecified; R13.12 Dysphagia, oropharyngeal phase; R74.01 Elevation of levels of liver transaminase levels; K44.9 Diaphragmatic hernia without obstruction or gangrene; K29.70 Gastritis, unspecified, without bleeding; I42.9 Cardiomyopathy, unspecified; R73.03 Prediabetes; R00.1 Bradycardia, unspecified; K80.20 Calculus of gallbladder without cholecystitis without obstruction; E87.0 Hyperosmolality and hypernatremia; K59.00 Constipation, unspecified; G93.1 Anoxic brain damage, not elsewhere classified; L89.621 Pressure ulcer of left heel, stage 1; E87.6 Hypokalemia; E78.5 Hyperlipidemia, unspecified; I25.10 Atherosclerotic heart disease of native coronary artery without angina pectoris; Z82.49 Family history of ischemic heart disease and other diseases of the circulatory system; Z90.5 Acquired absence of kidney; Z99.81 Dependence on supplemental oxygen; I69.354 Hemiplegia and hemiparesis following cerebral infarction affecting left non-dominant side; Z68.29 Body mass index [BMI] 29.0-29.9, adult; E88.09 Other disorders of plasma-protein metabolism, not elsewhere classified
CPT/HCPCS: 31500; 36415; 36573; 36600; 71045; 72170; 76700; 80048; 80053; 80076; 80305; 81003; 82043; 82375; 82570; 82607; 82728; 82746; 82805; 82962; 83036; 83540; 83550; 83735; 83880; 84100; 84145; 84300; 84425; 84443; 84478; 84484; 84540; 85025; 85027; 85379; 85651; 86140; 86705; 86706; 86709; 86803; 87070; 87340; 87426; 92610; 92950; 93005; 93306; 93970; 94003; 94640; 94660; 97161; 97162; 97165; 97166; 97530; 97535; 99285; C1725; J0692; J0696; J1100; J1650; J1815; J2370; J2405; J2704; J2930; J3480; J3490; J7030; J7060; J7070; A4315